=== PATIENT | female | born 1970 | race Caucasian/White ===

== ENCOUNTER 2019-07-01 11:04 | Emergency (ER) | payer BC ==
[2019-07-01] MEDS ORDERED: ONDANSETRON 4 MG/2 ML VIAL ONE (12:21)
[2019-07-01] MEDS ORDERED: NA CHLORIDE 0.9% 1,000 ML ONE (12:21)
[2019-07-01 12:44] LABS: Absolute Lymphocytes (CBC) 3.1 K/uL (0.7-4.9); Basophils % 1.1 % (0-1.3); MPV 8.8 fL (7.6-11.3); RBC Red Blood Cell Count 4.47 M/uL (3.86-4.86)
[2019-07-01 13:05] LABS: ALT/SGPT 49 U/L (12-78); AST/SGOT 28 U/L (15-37); Alkaline Phosphatase 111 U/L (45-117); BUN Blood Urea Nitrogen 16 mg/dL (7-18); Bicarbonate 28 mmol/L (21-32); Bilirubin Direct < 0.1 mg/dL (0-0.2); Bilirubin Total 0.3 mg/dL (0.2-1.0); Glucose Level 86 mg/dL (74-106); Lipase 70 U/L (73-393); Potassium 3.9 mmol/L (3.5-5.1); Protein, Total 8.3 g/dL (6.4-8.2); Sodium Level 138 mmol/L (136-145)
[2019-07-01] MEDS ORDERED: MEPERIDINE HCL 25 MG/0.5 ML ONE (13:30)
--- NOTE | 2019-07-01 14:04 | RAD REPORT ---
EXAM DESCRIPTION: CT - Abdomen Pelvis W Contrast - 07/01/2019 1:51 pm CLINICAL HISTORY: Abdominal pain COMPARISON: none. TECHNIQUE: Computed axial tomography of the abdomen pelvis was obtained. 100 cc Isovue-300 was admin istered intravenously. Oral contrast was not requested which limits evaluation of bowel. All CT scans are performed using dose optimization technique as appropriate and may include automated exposure control or mA/KV adjustment according to patient size. FINDINGS: The liver, spleen, pancreas, adrenal and kidneys appear unremarkable. Sigmoidectomy. No evidence of diverticulitis. The bowel caliber and wall thickness is normal. A moder ate amount stool within the colon Neurostimulator device in place Hysterectomy. Tiny umbilical hernia IMPRESSION: Moderate amount stool within the colon Sigmoidectomy
--- NOTE | 2019-07-01 15:05 | ER ---
Nurse's Notes [facility] Name: Deb Mann Age: 48 yrs Sex: Female : 1970 Arrival Date: 07/01/2019 Time: 11:07 Bed 18 Private MD: Diagnosis: Constipation, unspecified Presentation: 06/30 11:28 Chief complaint: Patient states: hx of Crohns and colon resection and hx of colitis and iw obstruction, has abd distention X 2 weeks, no vomiting, decreased BM, and abd pain, has adhesion. Coronavirus screen: Proceed with normal triage. Patient denies a cough. Patient denies shortness of breath or difficulty breathing. Patient denies measured and/or subjective temperature greater than 100.4F prior to today's visit. Patient denies travel on a cruise ship or to a country the [facility] currently lists as an affected area. Patient denies contact with known and/or suspected case of COVID-19. Ebola Screen: Patient negative for fever greater than or equal to 101.5 degrees Fahrenheit, and additional compatible Ebola Virus Disease symptoms Patient denies exposure to infectious person. Patient denies travel to an Ebola-affected area in the 21 days before illness onset. No symptoms or risks identified at this time. Initial Sepsis Screen: Does the patient meet any 2 criteria? No. Patient's initial sepsis screen is negative. Does the patient have a suspected source of infection? No. Patient's initial sepsis screen is negative. Risk Assessment: Do you want to hurt yourself or someone else? Patient reports no desire to harm self or others. Onset of symptoms was June 17, 2019. 11:28 Method Of Arrival: Ambulatory iw 11:28 Acuity: VANNESA 3 iw Triage Assessment: 12:00 General: Appears in no apparent distress. comfortable, Behavior is cooperative, bp appropriate for age, anxious. Pain: Complains of pain in abdomen. EENT: No deficits noted. Neuro: No deficits noted. Cardiovascular: No deficits noted. Respiratory: No deficits noted. GI: Abdomen is distended, Bowel sounds present X 4 quads. : No signs and/or symptoms were reported regarding the genitourinary system. Derm: No deficits noted. Musculoskeletal: No deficits noted. 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 - Social history:: Smoking status: Smoking status: Patient reports the use of cigarette tobacco products, smokes one-half pack cigarettes per day. - Family history:: not pertinent. - Hospitalizations: : No recent hospitalization is reported. Screenin:00 Abuse screen: Denies threats or abuse. Denies injuries from another. Nutritional bp screening: No deficits noted. Tuberculosis screening: No symptoms or risk factors identified. Fall Risk None identified. Assessment: 12:00 General: SEE TRIAGE NOTE. GI: Guarding noted X 4 quads. bp 12:49 Reassessment: PO CONTRAST COMPLETE, CT NOTIFIED. bp 14:00 Reassessment: PT RETURNED FROM CT. ACUTE S/S IMPROVED. bp 15:37 Reassessment: PT D/C HOME AMBULATORY, DX WITH CONSTIPATION. bp Vital Signs: 11:28 BP 144 / 101; Pulse 108; Resp 18; Temp 98.2; Pulse Ox 98% on R/A; Weight 61.23 kg; iw Height 5 ft. 5 in. (165.10 cm); Pain 6/10; 12:47 BP 172 / 112; Pulse 80; Resp 16; Pulse Ox 100% ; bp 14:00 BP 123 / 73; Pulse 82; Resp 16; Pulse Ox 100% ; bp 15:37 BP 139 / 71; Pulse 82; Resp 17; Temp 98.5; Pulse Ox 98% ; bp 11:28 Body Mass Index 22.46 (61.23 kg, 165.10 cm) iw ED Course: 11:07 Patient arrived in ED. ag5 11:30 Triage completed. iw 11:32 Arm band placed on. iw 12:00 Bryan Dorsey PA is PHCP. jr8 12:00 Nico Boogie MD is Attending Physician. jr8 12:00 Patient has correct armband on for positive identification. Bed in low position. Call bp light in reach. Side rails up X2. 12:04 Mateo Kent, RN is Primary Nurse. bp 12:30 Accessed Port-a-Cath. using accessed w/ #19 Mitchell needle, ,sterile technique, per hospital protocol. Clean \T\ dry. Dressing intact. Good blood return. Flushes easily. 13:50 CT Abd/Pelvis - PO and IV Contrast In Process Unspecified. EDMS 15:37 No provider procedures requiring assistance completed. IV discontinued, intact, bp bleeding controlled, No redness/swelling at site. Pressure dressing applied. Administered Medications: 12:30 Drug: NS 0.9% 1000 ml Route: IV; Rate: 1000 ml; Site: Port-a-cath; bp 15:39 Follow up: IV Status: Completed infusion; IV Intake: 1000ml bp 12:30 Drug: Zofran (Ondansetron) 4 mg Route: IVP; Site: Port-a-cath; bp 13:21 Follow up: Response: Nausea is decreased bp 13:25 Drug: Demerol 25 mg Route: IVP; Site: Port-a-cath; bp 14:20 Follow up: Response: Pain is decreased bp Intake: 15:39 IV: 1000ml; Total: 1000ml. bp Outcome: 15:05 Discharge ordered by . rn 15:37 Discharged to home ambulatory. bp 15:37 Condition: stable 15:37 Discharge instructions given to patient, Instructed on discharge instructions, follow up and referral plans. Demonstrated understanding of instructions, follow-up care. 15:43 Patient left the ED. bp Signatures: Dispatcher [employer] Nickie Mccord RN Nico Rich MD MD rn Roszak, Josh, PA PA jr8 Mateo Kent RN RN bp Gaskin, Ajare ag5
--- NOTE | 2019-07-01 15:05 | EDPHYS ---
Physician Documentation [facility] Name: Deb Mann Age: 48 yrs Sex: Female : 1970 Arrival Date: 07/01/2019 Time: 11:07 Bed 18 Private MD: ED Physician Nioc Boogie HPI: 06/30 12:28 This 48 yrs old Female presents to ER via Ambulatory with complaints of rn Abdominal Problem. 12:28 The patient presents with abdominal pain abdominal distention. Onset: The rn symptoms/episode began/occurred 3 day(s) ago. The symptoms do not radiate. Associated signs and symptoms: Pertinent positives: constipation, Pertinent negatives: blood in stools, fever, vomiting. The symptoms are described as achy, crampy. Modifying factors: The symptoms are alleviated by nothing, the symptoms are aggravated by touching the area. Severity of pain: At its worst the pain was mild in the emergency department the pain is unchanged. The patient has experienced a previous episode. The patient has not recently seen a physician. Reports abd distension for last few days, no fever/vomiting, + constipation but states takes benadryl to sleep and can sometimes go a week without bowel movement. Reports has Crohn's, and obstruction in past, but hasn't had any problems for 5-6 years. . 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 - Social history:: Smoking status: Smoking status: Patient reports the use of cigarette tobacco products, smokes one-half pack cigarettes per day. - Family history:: not pertinent. - Hospitalizations: : No recent hospitalization is reported. ROS: 12:28 Constitutional: Negative for fever, chills, and weight loss, Eyes: Negative for injury, rn pain, redness, and discharge, Cardiovascular: Negative for chest pain, palpitations, and edema, Respiratory: Negative for shortness of breath, cough, wheezing, and pleuritic chest pain, Abdomen/GI: + abd pain and distension MS/Extremity: Negative for injury and deformity, Skin: Negative for injury, rash, and discoloration, Neuro: Negative for headache, weakness, numbness, tingling, and seizure. Exam: 12:28 Constitutional: This is a well developed, well nourished patient who is awake, alert, rn and in no acute distress. Head/Face: Normocephalic, atraumatic. Cardiovascular: tachycardic, regular Respiratory: No increased work of breathing, no retractions or nasal flaring. Abdomen/GI: slightly firm in all quadrants, + small bulge possible ventral hernia, no skin changes Skin: Warm, dry MS/ Extremity: Pulses equal, no cyanosis. Neuro: Awake and alert, GCS 15 Vital Signs: 11:28 BP 144 / 101; Pulse 108; Resp 18; Temp 98.2; Pulse Ox 98% on R/A; Weight 61.23 kg; iw Height 5 ft. 5 in. (165.10 cm); Pain 6/10; 12:47 BP 172 / 112; Pulse 80; Resp 16; Pulse Ox 100% ; bp 14:00 BP 123 / 73; Pulse 82; Resp 16; Pulse Ox 100% ; bp 15:37 BP 139 / 71; Pulse 82; Resp 17; Temp 98.5; Pulse Ox 98% ; bp 11:28 Body Mass Index 22.46 (61.23 kg, 165.10 cm) iw MDM: 12:08 Patient medically screened. rn 15:01 Differential diagnosis: bowel obstruction, diverticulitis, non-specific abd pain. rn Differential diagnosis: crohns flare. Data reviewed: vital signs, nurses notes. Counseling: I had a detailed discussion with the patient and/or guardian regarding: the historical points, exam findings, and any diagnostic results supporting the discharge/admit diagnosis, lab results, radiology results, the need for outpatient follow up, to return to the emergency department if symptoms worsen or persist or if there are any questions or concerns that arise at home. Special discussion: I discussed with the patient/guardian in detail that at this point there is no indication for admission to the hospital. It is understood, however, that if the symptoms persist or worsen the patient needs to return immediately for re-evaluation. Based on the history and exam findings, there is no indication for further emergent testing or inpatient evaluation. I discussed with the patient/guardian the need to see the airplane fueler for further evaluation of the symptoms. I discussed with the patient/guardian the need to see the primary care provider for further evaluation of the symptoms. ED course: CT shows constipation, no bowel obstruction, no infection or signs of crohn's disease. 15:05 ED course: Pt directed to stay hydrated and take magnesium citrate OTC, has done so rn before for constipation, and has helped. Is happy that she doesn't need surgery or procedure, will dc home.. 06/30 12:00 Order name: Basic Metabolic Panel; Complete Time: : 8 06/30 12:00 Order name: CBC with Diff; Complete Time: 8 06/30 12:00 Order name: Creatinine for Radiology; Complete Time: 8 06/30 12:00 Order name: Hepatic Function; Complete Time: : 8 06/30 12:00 Order name: Lipase; Complete Time: : 8 06/30 12:05 Order name: CT Abd/Pelvis - PO and IV Contrast; Complete Time: 14:13 rn 06/30 12:00 Order name: IV Saline Lock; Complete Time: 12:51 jr8 06/30 12:00 Order name: Labs collected and sent; Complete Time: 12: jr8 Administered Medications: 12:30 Drug: NS 0.9% 1000 ml Route: IV; Rate: 1000 ml; Site: Port-a-cath; bp 15:39 Follow up: IV Status: Completed infusion; IV Intake: 1000ml bp 12:30 Drug: Zofran (Ondansetron) 4 mg Route: IVP; Site: Port-a-cath; bp 13:21 Follow up: Response: Nausea is decreased bp 13:25 Drug: Demerol 25 mg Route: IVP; Site: Port-a-cath; bp 14:20 Follow up: Response: Pain is decreased bp Disposition: 07/01/19 15:05 Discharged to Home. Impression: Constipation, unspecified. - Condition is Stable. - Discharge Instructions: Constipation, Adult. - Medication Reconciliation Form, Thank You Letter, Antibiotic Education, Prescription Opioid Use form. - Follow up: Private Physician; When: As needed; Reason: Recheck today's complaints, Re-evaluation by your physician. - Problem is new. - Symptoms have improved. Signatures: Dispatcher [employer] Nickie Mccord RN RN Nico Camejo MD MD rn Roszak, Josh, PA PA jr8 Mateo Kent RN RN bp Corrections: (The following items were deleted from the chart) 15:43 15:05 07/01/2019 15:05 Discharged to Home. Impression: Constipation, unspecified. bp Condition is Stable. Forms are Medication Reconciliation Form, Thank You Letter, Antibiotic Education, Prescription Opioid Use. Follow up: Private Physician; When: As needed; Reason: Recheck today's complaints, Re-evaluation by your physician. Problem is new. Symptoms have improved. rn
[2019-07-01] MEDS ORDERED: HEPARIN 500 UNIT/5 ML SYR IV ONE (15:38)
[2019-07-01 16:15] VITALS: BP 139/71; TEMP 98.5; O2SAT 98
== END 2019-07-01 15:43 | disposition home or self-care (01) ==
LOC: ER 11:04
DX: K59.00 Constipation, unspecified (principal); F17.210 Nicotine dependence, cigarettes, uncomplicated; Z88.8 Allergy status to other drugs, medicaments and biological substances
CPT/HCPCS: 96361; 85025; 80048; 36415; 80076; 83690; 74177; 96375; 96374; 99284; Q9967; J2175; J1642; J7030; J2405

== ENCOUNTER 2022-10-21 09:00 | Emergency (ER) | payer BC ==
[2022-10-21] MEDS ORDERED: DIAZEPAM 10 MG/2 ML INJ SYRINGE ONE (09:36)
[2022-10-21] MEDS ORDERED: HALOPERIDOL LACT 5 MG/ML INJ ONE ×2 (09:37→16:57)
[2022-10-21] MEDS ORDERED: NA CHLORIDE 0.9% 50 ML ONE ×2 (09:37→16:57)
[2022-10-21] MEDS ORDERED: NA CHLORIDE 0.9% 1,000 ML ONE ×3 (09:37→17:25)
[2022-10-21] MEDS ORDERED: FAMOTIDINE 20 MG/2 ML VIAL IV ONE (09:37)
[2022-10-21 09:52] LABS: Absolute Lymphocytes (CBC) 1.1 K/uL (0.7-4.9); Hematocrit 44.5 % (36.0-45.0); Lymphocytes % 4.8 % (15.3-44.8); MCV 89.1 fL (80-100); MPV 8.3 fL (7.6-11.3); Platelets 503 thou/uL (152-406); RBC Red Blood Cell Count 4.99 M/uL (3.86-4.86)
[2022-10-21 10:11] LABS: ALT/SGPT 77 U/L (13-56); AST/SGOT 48 U/L (15-37); Albumin 4.3 g/dL (3.4-5.0); Alkaline Phosphatase 124 U/L (45-117); BUN Blood Urea Nitrogen 19 mg/dL (7-18); Bicarbonate 25 mEq/L (21-32); Bilirubin Total 0.5 mg/dL (0.2-1.0); Glomerular Filtration Rate 45 ml/min (=/>90); Glucose Level 191 mg/dL (74-106); Lipase 16 U/L (13-75); Sodium Level 138 mEq/L (136-145)
[2022-10-21] MEDS ORDERED: NA CHLORIDE 0.9% 100 ML ONE (10:47)
[2022-10-21] MEDS ORDERED: PIPERACIL/TAZO 3.375 GM VIAL IV ONE (10:47)
[2022-10-21 11:31] LABS: Blood Morphology Comment NOT SEEN (NOT SEEN); Platelet Estimate INCR; White Blood Cell Scan OK (OK)
--- NOTE | 2022-10-21 11:51 | RAD REPORT ---
EXAM DESCRIPTION: CT - Abdomen Pelvis W Contrast - 10/21/2022 11:15 am CLINICAL HISTORY: Abd pain;Abdominal distention COMPARISON: Abdomen Pelvis W Contrast dated 07/01/2019 TECHNIQUE: Thin cut axial CT imaging of the abdomen and pelvis was performed following intravenous a dministration of 95 mL Isovue 300. Multiplanar reformats were generated and reviewed. All CT scans are performed using dose optimization technique as appropriate and may include automated exposure control or mA/KV adjustment according to patient size. FINDINGS: No suspicious findings in the lung bases. The liver, spleen, and pancreas show no suspicious findings. Gallbladder and biliary tree are also wi thout suspicious finding. Symmetric renal function is seen with no hydronephrosis or suspicious renal mass. Long segment of bowel wall thickening and mucosal hyperenhancement involving the distal ileum. Mild f luid distention and mild small bowel dilation of segments of mid to distal bowel loops, proximal to t hat segment, as well as involving the proximal aspect of that segment. Smooth tapering of inflamed tierra wel towards the terminal ileum, with the inflammatory appearance not extending to the ileocecal junct ion. No free air, free fluid or inflammatory stranding. Sequelae of partial colectomy with a distal c olonic anastomosis. No hernia, mass or bulky lymphadenopathy. The urinary bladder is without signific ant finding. No suspicious bony findings. IMPRESSION: Long segment of inflammatory changes with bowel wall thickening and mucosal hyperenhance ment involving the distal ileum. Small tapering towards the terminal ileum, with the inflammatory richard earance not involving the ileocecal junction. Two mild ileus of the distal small bowel
[2022-10-21 12:22] LABS: Specific Gravity > 1.030 (1.005-1.030); Urine Bacteria <20 /HPF (<20); Urine Bilirubin NEGATIVE (Negative); Urine Blood 1+ (Negative); Urine Clarity Clear (Clear); Urine Color Light-Yellow (Yellow); Urine Glucose TRACE (Negative); Urine Mucus Slight /HPF (None Seen); Urine Protein NEGATIVE (Negative); Urine Urobilinogen Normal (Normal); Urine pH 6.5 (5.0-7.0)
[2022-10-21 13:18] LABS: Troponin High Sensitivity < 3.0 pg/mL (<58.9)
--- NOTE | 2022-10-21 17:30 | EDPHYS ---
Physician Documentation [facility] Name: Deb Mann Age: 52 yrs Sex: Female : 1970 Arrival Date: 10/21/2022 Time: 09:00 Bed 13 Private MD: YONATAN Physician Anil Church HPI: 10/21 09:16 This 52 yrs old Female presents to ER via Wheelchair with complaints of Abdominal Pain, snw Nausea/Vomiting/Diarrhea. 09:16 The patient presents with abdominal pain abdominal distention. Onset: The snw symptoms/episode began/occurred suddenly, last night. The symptoms do not radiate. Associated signs and symptoms: Pertinent positives: nausea, vomiting. The symptoms are described as stabbing, steady. Severity of pain: At its worst the pain was moderate severe. pt has had multiple bowel resections. Historical: - Allergies: 09:13 Remicade; hb - PMHx: 09:13 bowel obstruction; Crohn's; UTI; hb - PSHx: 09:13 Colon Resection; hb ROS: 09:16 Constitutional: Negative for fever, chills, and weight loss, Eyes: Negative for injury, snw pain, redness, and discharge, ENT: Negative for injury, pain, and discharge, Neck: Negative for injury, pain, and swelling, Cardiovascular: Negative for chest pain, palpitations, and edema, Respiratory: Negative for shortness of breath, cough, wheezing, and pleuritic chest pain, Back: Negative for injury and pain, : Negative for injury, bleeding, discharge, and swelling, MS/Extremity: Negative for injury and deformity, Skin: Negative for injury, rash, and discoloration, Neuro: Negative for headache, weakness, numbness, tingling, and seizure, Psych: Negative for depression, anxiety, suicide ideation, homicidal ideation, and hallucinations. 09:16 Abdomen/GI: Positive for abdominal pain, nausea and vomiting, abdominal cramps. Exam: 09:14 Eyes: Pupils equal round and reactive to light, extra-ocular motions intact. Lids and snw lashes normal. Conjunctiva and sclera are non-icteric and not injected. Cornea within normal limits. Periorbital areas with no swelling, redness, or edema. ENT: Nares patent. No nasal discharge, no septal abnormalities noted. Tympanic membranes are normal and external auditory canals are clear. Oropharynx with no redness, swelling, or masses, exudates, or evidence of obstruction, uvula midline. Mucous membranes moist. Neck: Trachea midline, no thyromegaly or masses palpated, and no cervical lymphadenopathy. Supple, full range of motion without nuchal rigidity, or vertebral point tenderness. No Meningismus. Chest/axilla: Normal chest wall appearance and motion. Nontender with no deformity. No lesions are appreciated. 09:14 Back: No spinal tenderness. No costovertebral tenderness. Full range of motion. MS/ Extremity: Pulses equal, no cyanosis. Neurovascular intact. Full, normal range of motion. Neuro: Awake and alert, GCS 15, oriented to person, place, time, and situation. Cranial nerves II-XII grossly intact. Motor strength 5/5 in all extremities. Sensory grossly intact. Cerebellar exam normal. Normal gait. 09:14 Constitutional: The patient appears alert, awake, anxious, restless, uncomfortable. 09:14 Head/face: Exam is negative for 09:14 Cardiovascular: Rate: tachycardic, Rhythm: regular, Pulses: no pulse deficits are appreciated. 09:14 Respiratory: the patient does not display signs of respiratory distress, Respirations: shallow respirations, tachypnea. 09:14 Abdomen/GI: Inspection: distension, Bowel sounds: diminished, Palpation: moderate abdominal tenderness, in all quadrants. 09:14 Skin: Appearance: Color: dusky, Moisture: dry. 09:14 Psych: Behavior/mood is pleasant, anxious, Affect is animated. Vital Signs: 09:11 BP 171 / 125; Pulse 123; Resp 20; Temp 98.7(O); Pulse Ox 100% on R/A; Weight 61.23 kg; hb Height 5 ft. 5 in. ; Pain 8/10; 10:52 BP 156 / 92; Pulse 111; Resp 20 S; Pulse Ox 98% on R/A; kc6 11:51 Pulse 109; Resp 20 S; Pulse Ox 99% on R/A; kc6 12:35 BP 149 / 92; Pulse 108; Resp 16 S; Temp 97.8(O); Pulse Ox 100% on R/A; kc6 13:55 BP 147 / 99; Pulse 104; Resp 20 S; Pulse Ox 99% on R/A; kc6 14:36 BP 127 / 83; Pulse 104; Resp 17 S; Temp 98.5(O); Pulse Ox 100% on R/A; kc6 15:32 BP 129 / 84; Pulse 103; Resp 15 S; Pulse Ox 100% on R/A; kc6 17:01 BP 106 / 68; Pulse 100; Resp 12 S; Pulse Ox 98% on R/A; Pain 7/10; kc6 17:54 BP 102 / 65; Pulse 101; Resp 14 S; Pulse Ox 99% on R/A; kc6 18:36 BP 127 / 72; Pulse 99; Resp 14 S; Pulse Ox 100% on R/A; kc6 19:41 BP 133 / 83; Pulse 98; Resp 19; Pulse Ox 100% on R/A; ll3 09:11 Body Mass Index 22.46 (61.23 kg, 165.1 cm) hb 09:11 Pain Scale: Adult hb 17:01 Pain Scale: Adult kc6 MDM: 09:08 Patient medically screened. snw 09:16 Differential diagnosis: bowel obstruction, cholecystitis, Cholelithiasis. Data snw reviewed: vital signs, nurses notes. I considered the following discharge prescriptions or medication management in the emergency department Medications were administered in the Emergency Department. See MAR. 12:41 Management of patient was discussed with the following: Hospitalist: Dr. Connelly. snw Counseling: I had a detailed discussion with the patient and/or guardian regarding the historical points, exam findings, and any diagnostic results supporting the discharge/admit diagnosis, the presence of at least one elevated blood pressure reading (>120/80) during this emergency department visit, lab results, radiology results, the need for further work-up and treatment in the hospital. Response to treatment: the patient's symptoms have markedly improved after treatment. 12:47 ED course: IV access difficult, pt has port from 10 yrs ago, difficultly obtaining labs snw delayed fluid a bit but pt is more hemodynamically stable at this time, CT shows colitis and ileus, pt to be admitted to inpatient per Dr. Connelly. 13:06 ED course: Dr. Brizuela, Surgery senior control systems engineer, states pt needs to be transferred for GI, pt may snw need colonoscopy, endoscopy, stricture stent or stricturoplasty. Unknown if colitis infectious, inflammatory, or ischemic. 17:00 Management of patient was discussed with the following: Dr. Lockwood, Colorectal surgery, [facility] kindly accepts pt in transfer.. 17:27 ED course: Dr. Correa would like a repeat lactate, ordered now. He accepts pt in snw transfer upon result. 10/21 09:13 Order name: CBC with Diff; Complete Time: 11:33 snw 10/21 09:13 Order name: CMP; Complete Time: 13:22 snw 10/21 09:13 Order name: Lipase; Complete Time: 13:22 snw 10/21 09:13 Order name: Urinalysis w/ reflexes; Complete Time: 12:31 snw 10/21 09:54 Order name: Blood Culture Adult (2) snw 10/21 09:56 Order name: Lactate w/ 2H reflex if indic.; Complete Time: 11:33 snw 10/21 11:32 Order name: CBC Smear Scan; Complete Time: 11:33 EDMS 10/21 12:26 Order name: Troponin High Sensitivity; Complete Time: 13:22 EDMS 10/21 14:22 Order name: CRP; Complete Time: 15:05 snw 10/21 14:22 Order name: Procalcitonin; Complete Time: 15:50 snw 10/21 14:53 Order name: Lactate Sepsis 2 HR Follow-up; Complete Time: 14:54 EDMS 10/21 17:25 Order name: Lactate w/ 2H reflex if indic.; Complete Time: 18:46 snw 10/21 09:13 Order name: CT Abd/Pelvis - IV Contrast Only; Complete Time: 11:57 snw 10/21 11:44 Order name: EKG; Complete Time: 11:44 snw 10/21 09:13 Order name: IV Saline Lock; Complete Time: 10:46 snw 10/21 09:13 Order name: Labs collected and sent; Complete Time: 09:53 snw 10/21 11:44 Order name: EKG - Nurse/Tech; Complete Time: 11:58 snw Administered Medications: 09:53 Drug: Famotidine IVP 20 mg Route: IVP; Site: right antecubital; kc6 11:58 Follow up: Response: No adverse reaction kc6 10:57 Drug: Haloperidol IVP 2.5 mg/50 mL 2.5 mg Route: IVP; Site: left forearm; kc6 11:58 Follow up: Response: No adverse reaction; Nausea is decreased; Vomiting decreased kc6 10:57 Drug: NS 0.9% IV 1000 ml Route: IV; Rate: 1 bolus; Site: left forearm; kc6 12:43 Follow up: Response: No adverse reaction; IV Status: Completed infusion; IV Intake: kc6 1000ml 10:57 Drug: Diazepam IVP 5 mg Route: IVP; Site: left forearm; kc6 11:58 Follow up: Response: No adverse reaction; Anxiety unchanged; RASS: Alert and Calm (0) kc6 10:57 Drug: NS 0.9% IV 1000 ml Route: IV; Rate: 1 bolus; Site: left forearm; kc6 13:00 Follow up: Response: No adverse reaction; IV Status: Completed infusion; IV Intake: kc6 1000ml 12:32 Drug: Piperacillin-Tazobactam IVPB 3.375 grams Route: IVPB; Infused Over: 60 mins; kc6 Site: left forearm; 13:30 Follow up: Response: No adverse reaction; IV Status: Completed infusion; IV Intake: kc6 100ml 16:58 Drug: Haloperidol IVP 2.5 mg/50 mL 2.5 mg Route: IVP; Site: left forearm; kc6 17:18 Follow up: Response: No adverse reaction; Pain is decreased; Nausea is decreased; RASS: kc6 Alert and Calm (0) 17:18 Drug: NS 0.9% IV 1000 ml Route: IV; Rate: 1 bolus; Site: left forearm; kc6 20:49 Follow up: Response: No adverse reaction; IV Status: Completed infusion; IV Intake: ll3 1000ml Disposition Summary: 10/21/22 17:30 Transfer Ordered Transfer Location: [facility] snw Reason: Specialty snw Condition: Stable snw Problem: new snw Symptoms: have improved snw Accepting Physician: Dr. Correa(10/21/22 20:49) ll3 Diagnosis - Left sided colitis - infectious, inflammatory snw Forms: - Medication Reconciliation Form snw - SBAR form snw Signatures: Dispatcher [employer] EDFadia Morales FNP-C ORDER MANAGEMENT SPECIALIST-Csnw Ro Rahman RN RN hb Loubet, Lynsea, RN RN ll3 Radha Dale RN RN kc6 Corrections: (The following items were deleted from the chart) 12: 11:44 Troponin High Sensitivity+C.MURPHYZ ordered. EDMS EDMS 20:49 17:30 Dr. Madeline hornw ll3
--- NOTE | 2022-10-21 17:30 | ER ---
Nurse's Notes [facility] Name: Deb Mann Age: 52 yrs Sex: Female : 1970 Arrival Date: 10/21/2022 Time: 09:00 Bed 13 Private MD: Diagnosis: Left sided colitis-infectious, inflammatory Presentation: 10/21 09:11 Chief complaint: N/V, headache, and abdominal pain since last night, constipation x 3-4 hb days. Coronavirus screen: At this time, the client does not indicate any symptoms associated with coronavirus-19. Ebola Screen: No symptoms or risks identified at this time. Initial Sepsis Screen: Does the patient meet any 2 criteria? RR > 20 per min. HR > 90 bpm. Yes Does the patient have a suspected source of infection? No. Patient's initial sepsis screen is negative. Risk Assessment: Do you want to hurt yourself or someone else? Patient reports no desire to harm self or others. Onset of symptoms was October 20, 2022. 09:11 Method Of Arrival: Wheelchair hb 09:11 Acuity: VANNESA 2 hb Historical: - Allergies: 09:13 Remicade; hb - PMHx: 09:13 bowel obstruction; Crohn's; UTI; hb - PSHx: 09:13 Colon Resection; hb Screenin:15 [facility] ED Fall Risk Assessment (Adult) History of falling in the last 3 months, kc6 including since admission No falls in past 3 months (0 pts) Confusion or Disorientation No (0 pts) Intoxicated or Sedated No (0 pts) Impaired Gait No (0 pts) Mobility Assist Device Used No (0 pt) Altered Elimination No (0 pt) Score/Fall Risk Level 0 - 2 = Low Risk. Abuse screen: Denies threats or abuse. Denies injuries from another. Nutritional screening: No deficits noted. Tuberculosis screening: No symptoms or risk factors identified. Assessment: 09:15 General: Appears in no apparent distress. uncomfortable, ill, Behavior is cooperative, kc6 appropriate for age, anxious. Pain: Complains of pain in abdomen. Neuro: Level of Consciousness is awake, alert, obeys commands, Oriented to person, place, time, situation, Appropriate for age. Cardiovascular: Heart tones S1 S2 present Capillary refill < 3 seconds Rhythm is sinus tachycardia. Respiratory: Airway is patent Trachea midline Respiratory effort is even, unlabored, Respiratory pattern is regular, symmetrical. GI: Abdomen is round distended, Last BM was October 04, 2022. Bowel sounds present X 4 quads. Abd is rigid X 4 quads. Reports constipation, nausea, vomiting, Patient currently denies diarrhea. : No signs and/or symptoms were reported regarding the genitourinary system. EENT: No signs and/or symptoms were reported regarding the EENT system. Derm: No signs and/or symptoms reported regarding the dermatologic system. Skin is intact, is healthy with good turgor, Skin is pale. Musculoskeletal: No signs and/or symptoms reported regarding the musculoskeletal system. Circulation, motion, and sensation intact. Capillary refill < 3 seconds, Range of motion: intact in all extremities. 10:15 Reassessment: Patient appears in no apparent distress at this time. No changes from kc6 previously documented assessment. Patient and/or family updated on plan of care and expected duration. Pain level reassessed. Patient is alert, oriented x 3, equal unlabored respirations, skin warm/dry/pink. 10:45 Reassessment: spoke with Cate from phlebotmy. stated she has to go to ICU and then [facility] will come here for assistance with blood cultures. 11:15 Reassessment: Patient appears in no apparent distress at this time. No changes from kc6 previously documented assessment. Patient and/or family updated on plan of care and expected duration. Pain level reassessed. Patient is alert, oriented x 3, equal unlabored respirations, skin warm/dry/pink. 12:35 Reassessment: Patient appears in no apparent distress at this time. No changes from kc6 previously documented assessment. Patient and/or family updated on plan of care and expected duration. Pain level reassessed. Patient is alert, oriented x 3, equal unlabored respirations, skin warm/dry/pink. 13:55 Reassessment: Patient appears in no apparent distress at this time. No changes from kc6 previously documented assessment. Patient and/or family updated on plan of care and expected duration. Pain level reassessed. Patient is alert, oriented x 3, equal unlabored respirations, skin warm/dry/pink. 14:36 Reassessment: Patient appears in no apparent distress at this time. No changes from kc6 previously documented assessment. Patient and/or family updated on plan of care and expected duration. Pain level reassessed. Patient is alert, oriented x 3, equal unlabored respirations, skin warm/dry/pink. 15:32 Reassessment: Patient appears in no apparent distress at this time. No changes from [facility] previously documented assessment. Patient and/or family updated on plan of care and expected duration. Pain level reassessed. Patient is alert, oriented x 3, equal unlabored respirations, skin warm/dry/pink. 16:32 Reassessment: Patient appears in no apparent distress at this time. No changes from [facility] previously documented assessment. Patient and/or family updated on plan of care and expected duration. Pain level reassessed. Patient is alert, oriented x 3, equal unlabored respirations, skin warm/dry/pink. 17:54 Reassessment: Patient appears in no apparent distress at this time. No changes from [facility] previously documented assessment. Patient and/or family updated on plan of care and expected duration. Pain level reassessed. Patient is alert, oriented x 3, equal unlabored respirations, skin warm/dry/pink. 18:36 Reassessment: Patient appears in no apparent distress at this time. No changes from [facility] previously documented assessment. Patient and/or family updated on plan of care and expected duration. Pain level reassessed. Patient is alert, oriented x 3, equal unlabored respirations, skin warm/dry/pink. 18:59 Reassessment: attempted to call report to [facility]. no answer at this time. 6 Vital Signs: 09:11 BP 171 / 125; Pulse 123; Resp 20; Temp 98.7(O); Pulse Ox 100% on R/A; Weight 61.23 kg; hb Height 5 ft. 5 in. ; Pain 8/10; 10:52 BP 156 / 92; Pulse 111; Resp 20 S; Pulse Ox 98% on R/A; kc6 11:51 Pulse 109; Resp 20 S; Pulse Ox 99% on R/A; kc6 12:35 BP 149 / 92; Pulse 108; Resp 16 S; Temp 97.8(O); Pulse Ox 100% on R/A; kc6 13:55 BP 147 / 99; Pulse 104; Resp 20 S; Pulse Ox 99% on R/A; kc6 14:36 BP 127 / 83; Pulse 104; Resp 17 S; Temp 98.5(O); Pulse Ox 100% on R/A; kc6 15:32 BP 129 / 84; Pulse 103; Resp 15 S; Pulse Ox 100% on R/A; kc6 17:01 BP 106 / 68; Pulse 100; Resp 12 S; Pulse Ox 98% on R/A; Pain 7/10; kc6 17:54 BP 102 / 65; Pulse 101; Resp 14 S; Pulse Ox 99% on R/A; kc6 18:36 BP 127 / 72; Pulse 99; Resp 14 S; Pulse Ox 100% on R/A; kc6 19:41 BP 133 / 83; Pulse 98; Resp 19; Pulse Ox 100% on R/A; ll3 09:11 Body Mass Index 22.46 (61.23 kg, 165.1 cm) hb 09:11 Pain Scale: Adult hb 17:01 Pain Scale: Adult [facility] ED Course: 09:03 Patient arrived in ED. ts1 09:05 Fad[facility] Goldstein FNP-C [facility]. snw 09:05 Anil Church MD is Attending Physician. snw 09:13 Triage completed. hb 09:14 Arm band placed on. hb 09:15 Patient has correct armband on for positive identification. Placed in gown. Bed in low kc6 position. Call light in reach. Side rails up X2. Adult w/ patient. 09:15 Missed attempt(s): 22 gauge in left antecubital area. Missed attempt(s): 22 gauge in kc6 left antecubital area. 09:22 Radha Dale RN is Primary Nurse. [facility] 10:43 Inserted saline lock: 22 gauge in left forearm, using aseptic technique. Blood ko1 collected. 11:10 Missed attempt(s): 20 gauge in left EJ. Missed attempt(s): 20 gauge in left EJ, by [facility] Fadia Goldstein NP. 11:16 CT Abd/Pelvis - IV Contrast Only In Process Unspecified. EDMS 12:10 Accessed Port-a-Cath. using accessed w/ # 20 Mitchell needle, ,sterile technique, per [facility] hospital protocol. Clean \T\ dry. Dressing intact. Good blood return. Flushes easily. by Ro Rahman RN. 16:[address] Jim the colorectal surgeon auto air conditioning apprentice for [facility] with Fadia Tyson eb for patient transfer consultation. 18:21 Lactate w/ 2H reflex if indic. Sent. hb 18:50 administrative approval given by Mine Kelley Rn/ patient has been accepted to [facility] Bed 1543/ Dr. Vidal has accepted the patient in transfer/ report to be called to [phone]. 20:47 No provider procedures requiring assistance completed. Patient transferred, IV remains ll3 in place. Administered Medications: 09:53 Drug: Famotidine IVP 20 mg Route: IVP; Site: right antecubital; kc6 11:58 Follow up: Response: No adverse reaction kc6 10:57 Drug: Haloperidol IVP 2.5 mg/50 mL 2.5 mg Route: IVP; Site: left forearm; kc6 11:58 Follow up: Response: No adverse reaction; Nausea is decreased; Vomiting decreased kc6 10:57 Drug: NS 0.9% IV 1000 ml Route: IV; Rate: 1 bolus; Site: left forearm; kc6 12:43 Follow up: Response: No adverse reaction; IV Status: Completed infusion; IV Intake: kc6 1000ml 10:57 Drug: Diazepam IVP 5 mg Route: IVP; Site: left forearm; kc6 11:58 Follow up: Response: No adverse reaction; Anxiety unchanged; RASS: Alert and Calm (0) kc6 10:57 Drug: NS 0.9% IV 1000 ml Route: IV; Rate: 1 bolus; Site: left forearm; kc6 13:00 Follow up: Response: No adverse reaction; IV Status: Completed infusion; IV Intake: kc6 1000ml 12:32 Drug: Piperacillin-Tazobactam IVPB 3.375 grams Route: IVPB; Infused Over: 60 mins; kc6 Site: left forearm; 13:30 Follow up: Response: No adverse reaction; IV Status: Completed infusion; IV Intake: kc6 100ml 16:58 Drug: Haloperidol IVP 2.5 mg/50 mL 2.5 mg Route: IVP; Site: left forearm; kc6 17:18 Follow up: Response: No adverse reaction; Pain is decreased; Nausea is decreased; RASS: kc6 Alert and Calm (0) 17:18 Drug: NS 0.9% IV 1000 ml Route: IV; Rate: 1 bolus; Site: left forearm; kc6 20:49 Follow up: Response: No adverse reaction; IV Status: Completed infusion; IV Intake: ll3 1000ml Medication: 20:49 VIS not applicable for this client. ll3 Intake: 12:43 IV: 1000ml; Total: 1000ml. kc6 13:00 IV: 1000ml; Total: 2000ml. kc6 13:30 IV: 100ml; Total: 2100ml. kc6 20:49 IV: 1000ml; Total: 3100ml. ll3 Outcome: 17:30 ER care complete, transfer ordered by . sndarby 20:47 Transferred by ground EMS to [facility], [facility], Transfer form completed. ll3 20:47 Condition: stable 20:47 Instructed on the need for transfer, Demonstrated understanding of instructions. 20:49 Patient left the ED. ll3 Signatures: Dispatcher [employer] EDMS Fadia Goldstein, [place] AIDE-C [employer] AIDE-Csnw Ro Rahman RN RN Tish Garcia [place] RN RN ll3 Radha Dale RN RN kc6 Danika Hernandez RN RN ko1 Katherin Sheth, PAS PAS ts1 Corrections: (The following items were deleted from the chart) 09:14 09:11 BP 171 / 125; Pulse 123bpm; Resp 20bpm; Pulse Ox 100% RA; Temp 98.7F Oral; Pain hb 8/10, Adult; hb
[2022-10-21 21:20] VITALS: TEMP 98.5
[2022-10-21 21:27] VITALS: O2SAT 100
[2022-10-21 21:29] VITALS: BP 133/83
--- NOTE | 2022-10-23 18:03 | EKG ---
Test Date: 2022-10-21 Test Time: 11:55:20 Pattern Carrier: SELINA MEASUREMENT RESULTS: Intervals: Rate: 108 MI: 160 QRSD: 84 QT: 350 QTc: 469 [place]: P: 70 MI: 160 QRS: 91 T: 66 INTERPRETIVE STATEMENTS: Sinus tachycardia Otherwise normal ECG No previous ECG available for comparison Electronically Signed On 10-23-22 17:58:26 CDT by Acosta Gonzales
== END 2022-10-21 20:49 | disposition short-term general hospital (02) ==
LOC: ER 09:00
DX: A09 Infectious gastroenteritis and colitis, unspecified (principal); Z88.8 Allergy status to other drugs, medicaments and biological substances
CPT/HCPCS: 93005; 87040 ×2; 85025; 81001; 36415; 83605 ×3; 84484; 83690; 80053; 84145; 86140; 74177; 99285; Q9967; J1630 ×2; J2543; J3360; J7030 ×3

== ENCOUNTER 2023-01-29 18:17 | Emergency (ER) | payer BC ==
--- OUTSIDE RECORDS SUMMARY | 2023-01-29 18:21 | XMS REPORT | Continuity of Care Document ---
:1970 Author Organization [facility] t Address [address] [facility] [address] [place] [id number] Care Team Providers Name Role Phone BREANNA ANN Attending Clinician Unavailable Hugo Hathaway MD Attending Clinician HUGO HATHAWAY Attending Clinician Unavailable Zechariah Fraser MD Attending Clinician Gerber Vidal MD Attending Clinician [phone] Breanna Ann MD Attending Clinician Maegan Raymond MD Attending Clinician MAEGAN RAYMOND Attending Clinician Unavailable BREANNA ANN Admitting Clinician Unavailable HUGO HATHAWAY Admitting Clinician Unavailable Payers Payer Name Policy Type Policy Number Effective Date Expiration Date Kemi anglin BCBS FED [id number] 2003 00:00:00 Problems Condition Condition Condition Status Onset Resolution Last Treating Co mments Source Name Details Category Date Date Treatment Clinician Date 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 00:[facility]: [facility] 00 Center Nausea & Nausea & Disease Active [facility] Allergies, Adverse Reactions, Alerts Allergy Allergy Status Severity Reaction(s) Onset Inactive Treating Comm ents Source Name Type Date Date Clinician Inflixim Drug Active Other (See Serum [facility] Allergy Comments) 10-21 sickness [facility] 00:[facility]: Medical 00 Center INFLIXIM Allergy Active High Other [facility]21 [facility] Social History Social Habit Start Date Stop Date Quantity Comments Source History [facility] Housing Places Medical Ce nter Lived Sexual orientation [facility] Alcohol intake 2022-12-28 2022-12-28 Ex-drinker [facility] 00:[facility]00 00:00:00 (finding) Medical Center History of Social 2022-12-28 2022-12-[address] [facility] function 00:00:00 00:00:00 Medical Center Exposure to 2022-12-17 2022-12-[address] [facility] SARS-CoV-2 (event) 00:00:00 12:15:00 Medica Center Tobacco use and 2022-12-25 2022-12-[address] [facility] exposure 00:00:00 00:00:00 non-user Medical Center Cigarettes smoked 2022-12-25 2022-12-[address] [facility] current (pack per 00:00:00 00:00:00 Medical Center day) - Reported Cigarette 2022-12-25 2022-12-[address] [facility] pack-years 00:00:00 00:00:00 Medical Center History [facility] 2022-10-22 2022-10-[address] [facility] Housing Unable to 00:00:00 00:00:00 Medical Center Pay History [facility] 2022-10-22 2022-10-[address] [facility] Housing Homeless 00:00:00 00:00:00 Medical Center Last Year History of tobacco 2002-08-03 2022-08-[address] [facility] use 00:00:00 00:00:00 [facility] Sex Assigned At 1970 [address] [facility] [address] [facility] kes 00:00:00 00:00:00 Medical Center Smoking Status Start Date Stop Date Source Ex-smoker 2022-12-25 00:00:00 2022-12-25 00:00:00 [place] [facility] Medications Ordered Filled Start Stop Current Ordering Indication Dosage Frequency Signature Comments Components Source Medication Medication Date Date Medication? Clinician (SIG) Name Name diphenhydrA 2022-03 Yes insomnia 50mg Take [address] [facility] 0-25 capsules [facility] (BENADRYL) 14:44: (50 mg Medic al 25 mg 50 total) by Center capsule mouth every night as needed for Sleep. buprenorphi 2022-03 Yes .5{film Q.40552545 Place 0.[address] [facility]-naloxone 0-25 } [id number] Film under [facility] (SUBOXONE) 14:44: 3D the tongue M edical 8-2 mg SL 50 3 (three) Cente r film times daily For pain control. diphenhydrA 2022-03 Yes insomnia 50mg Take [address] [facility]INE 0-25 capsules [facility] (BENADRYL) 14:44: (50 mg Medic al 25 mg 50 total) by Center capsule mouth every night as needed for Sleep. buprenorphi 2022-03 Yes .5{film Q.15471695 Place 0.[address] ne-naloxone 0-25 } [id number] Film under [facility] (SUBOXONE) 14:44: 3D the tongue M edical 8-2 mg SL 50 3 (three) Cente r film times daily For pain control. diphenhydrA 2022-03 Yes insomnia 50mg Take [address] [facility]INE 0-25 capsules [facility] (BENADRYL) 14:44: (50 mg Medic al 25 mg 50 total) by Center capsule mouth every night as needed for Sleep. buprenorphi 2022-03 Yes .5{film Q.[id number] Place 0.[address] ne-naloxone 0-25 } [id number] Film under [facility] (SUBOXONE) 14:44: 3D the tongue M edical 8-2 mg SL 50 3 (three) Cente r film times daily For pain control. buprenorphi 2022-03 Yes .5{film Q.[id number] Place 0.[address] ne-naloxone 0-23 } [id number] Film under [facility] (SUBOXONE) 09:25: 3D the tongue M edical 8-2 mg SL 07 3 (three) Cente r film times daily For pain control. diphenhydrA 2022-03 Yes insomnia 50mg Take [address] [facility]INE 0-23 capsules [facility] (BENADRYL) 09:20: (50 mg Medic al 25 mg 17 total) by Center capsule mouth every night as needed for Sleep. buprenorphi 0 2022- No 2mg Place [address] ne 8-20 08-20 tablet (2 [facility] (SUBUTEX) 2 13:22: 00:00 mg total) Medical mg SL 23 :00 under the Center tablet tongue every other day This medication has the potential to cause dental problems. After the medication has completely dissolved in your mouth, gently rinse your teeth and gums with water and then swallow, and also wait at least 1 ho. Max Daily Amount: 2 mg buprenorphi 2023-0 2023- No 2mg Place [address] [facility] 8-20 08-20 tablet (2 [facility] (SUBUTEX) 2 13:22: 00:00 mg total) Medical mg SL 23 :00 under the Center tablet tongue every other day This medication has the potential to cause dental problems. After the medication has completely dissolved in your mouth, gently rinse your teeth and gums with water and then swallow, and also wait at least 1 ho. Max Daily Amount: 2 mg buprenorphi 2023-0 2023- No 2mg Place [address] ne 8-20 08-20 tablet (2 [facility] (SUBUTEX) 2 13:22: 00:00 mg total) Medical mg SL 23 :00 under the Center tablet tongue every other day This medication has the potential to cause dental problems. After the medication has completely dissolved in your mouth, gently rinse your teeth and gums with water and then swallow, and also wait at least 1 ho. Max Daily Amount: 2 mg buprenorphi 2023-0 2023- No 2mg Place [address] ne 8-20 08-20 tablet (2 [facility] (SUBUTEX) 2 13:22: 00:00 mg total) Medical mg SL 23 :00 under the Center tablet tongue every other day This medication has the potential to cause dental problems. After the medication has completely dissolved in your mouth, gently rinse your teeth and gums with water and then swallow, and also wait at least 1 ho. Max Daily Amount: 2 mg Vital Signs Vital Name Observation Time Observation Value Comments Source HEIGHT 2022-12-27 12:30:00 165.1 cm WEIGHT 2022-12-27 12:30:00 64.365 kg HEIGHT 2022-12-25 07:00:00 165.1 cm WEIGHT 2022-12-25 07:00:00 63.504 kg HEIGHT 2022-12-27 12:30:00 165.1 cm WEIGHT 2022-12-27 12:30:00 64.365 kg HEIGHT 2022-12-25 07:00:00 165.1 cm WEIGHT 2022-12-25 07:00:00 63.504 kg HEIGHT 2022-12-27 12:30:00 165.1 cm WEIGHT 2022-12-27 12:30:00 64.365 kg HEIGHT 2022-12-25 07:00:00 165.1 cm WEIGHT 2022-12-25 07:00:00 63.504 kg WEIGHT 2022-10-21 22:03:00 65.137 kg HEIGHT 2022-10-21 22:03:00 165.1 cm WEIGHT 2022-10-21 22:03:00 65.137 kg HEIGHT 2022-10-21 22:03:00 165.1 cm WEIGHT 2022-10-21 22:03:00 65.137 kg HEIGHT 2022-10-21 22:03:00 165.1 cm Systolic blood 2022-12-27 14:30:00 118 mm[Hg] [facility] Diastolic blood 2022-12-27 14:30:00 68 mm[Hg] [facility] Heart rate 2022-12-27 14:30:00 76 /min [place] [facility] Respiratory rate 2022-12-27 14:30:00 16 /min [facility] Oxygen saturation in 2022-12-27 14:15:00 100 /min [facility] Arterial blood by Medical Ce nter Pulse oximetry Body temperature 2022-12-27 14:00:00 36.22 Jo [facility] Body height 2022-12-27 12:30:00 165.1 cm [place] [facility] Body weight 2022-12-27 12:30:00 64.365 kg [place] [facility] BMI 2022-12-27 12:30:00 23.61 kg/m2 [place] [facility] Body height 2022-12-25 07:00:00 165.1 cm [place] [facility] Body weight 2022-12-25 07:00:00 63.504 kg [place] [facility] BMI 2022-12-25 07:00:00 23.30 kg/m2 [place] [facility] Heart rate 2022-10-22 15:59:56 91 /min [place] [facility] Respiratory rate 2022-10-22 15:59:56 20 /min [facility] Oxygen saturation in 2022-10-22 15:59:56 96 /min [facility] Arterial blood by Medical Ce nter Pulse oximetry Systolic blood 2022-10-22 15:59:15 119 mm[Hg] [facility] Diastolic blood 2022-10-22 15:59:15 77 mm[Hg] [facility] Body temperature 2022-10-22 15:00:00 36.94 Jo [facility] Procedures Procedure Date / Time Performed Performing Clinician [facility] REPORT OF PROCEDURE - 2023-01-09 15:10:34 Hugo Hathaway [facility] ENDOSCOPY [facility] REPORT OF PROCEDURE - 2023-01-02 13:51:06 Hugo Hathaway [facility] ENDOSCOPY [facility] TISSUE EXAM 2022-12-27 13:09:00 Hugo Hathaway [facility] COLONOSCOPY 2022-12-27 13:00:00 Hugo Hathaway [facility] EGD 2022-12-27 13:00:00 Hugo Hathaway [facility] (ESOPHAGOGASTRODUODENOSCO [facility] PY) COLONOSCOPY, WITH BIOPSY 2022-12-27 12:59:00 Hugo Hathaway [facility] COLONOSCOPY, WITH 2022-12-27 12:59:00 Hugo Hathaway [facility] POLYPECTOMY [facility] ENDOSCOPY, UPPER GI 2022-12-27 12:59:00 Hugo Hathaway CH, I [facility] TRACT, WITH BIOPSY Medical Cente r URINALYSIS W/ REFLEX 2022-10-22 12:55:00 Breanna Ann [facility] URINE CULTURE [facility] US ABDOMEN LIMITED 2022-10-22 07:46:49 Breanna Ann [facility] CBC W/PLT COUNT & AUTO 2022-10-22 04:32:00 Breanna Ann I [facility] COMPREHENSIVE METABOLIC 2022-10-22 04:32:00 Breanna Ann C HI [facility] LIPASE 2022-10-22 04:32:00 Breanna Ann [facility] C-REACTIVE PROTEIN 2022-10-22 04:32[facility] AUTO 2022-10-22 04:32:00 Breanna Ann CH I [facility] XR ABDOMEN/KUB 1 VIEW 2022-10-21 22:43:00 [facility] Care Planned Activity Planned Date Details Comments Source Future Scheduled 2032-12-27 Screening for malignant [facility] Test 00:00:00 neoplasm of colon Medical Ce nter (procedure) [code = 907048517] Future Scheduled 2032-12-27 Screening for malignant [facility] Test 00:00:00 neoplasm of colon Medical Ce nter (procedure) [code = 017646209] Future Scheduled 2032-12-27 Screening for malignant [facility] Test 00:00:00 neoplasm of colon Medical Ce nter (procedure) [code = 040361535] Future Scheduled 2032-12-27 Screening for malignant [facility] Test 00:00:00 neoplasm of colon Medical Ce nter (procedure) [code = 929321211] Future Scheduled 2032-12-27 Screening for malignant [facility] Test 00:00:00 neoplasm of colon Medical Ce nter (procedure) [code = 537329482] Future Scheduled 2032-12-27 Screening for malignant [facility] Test 00:00:00 neoplasm of colon Medical Ce nter (procedure) [code = 450205405] Future Scheduled 2023-12-[address] [facility] Test 00:00:00 Counseling and Screening Med [facility] Center (12+) [code = Tobacco Cessation Counseling and Screening (12+)] Future Scheduled 2023-12-[address] [facility] Test 00:00:00 Counseling and Screening Med [facility] Center (12+) [code = Tobacco Cessation Counseling and Screening (12+)] Future Scheduled 2023-12-[address] [facility] Test 00:00:00 Counseling and Screening Med ical Center (12+) [code = Tobacco Cessation Counseling and Screening (12+)] Future Scheduled 2023-12-[address] [facility] Test 00:00:00 Counseling and Screening Med ical Center (12+) [code = Tobacco Cessation Counseling and Screening (12+)] Future Scheduled 2022-11-03 Influenza Vaccine (#1) [facility] 00:00:00 [code = Influenza Vaccine Me dical Center (#1)] Future Scheduled 2022-11-03 Influenza Vaccine (#1) [facility] 00:00:00 [code = Influenza Vaccine Me dical Center (#1)] Future Scheduled 2022-11-03 Influenza Vaccine (#1) [facility] 00:00:00 [code = Influenza Vaccine Me dical Center (#1)] Future Scheduled 2022-11-03 Influenza Vaccine (#1) [facility] 00:00:00 [code = Influenza Vaccine Me dical Center (#1)] Future Scheduled 2022 SHINGLES VACCINES ([address] [facility] Test 00:00:00 2) [code = SHINGLES Medical Center VACCINES (1 of 2)] Future Scheduled 2022 SHINGLES VACCINES ([address] [facility] Test 00:00:00 2) [code = SHINGLES Medical Center VACCINES (1 of 2)] Future Scheduled 2022 SHINGLES VACCINES ([address] [facility] Test 00:00:00 2) [code = SHINGLES Medical Center VACCINES (1 of 2)] Future Scheduled 2022 SHINGLES VACCINES ([address] [facility] Test 00:00:00 2) [code = SHINGLES Medical Center VACCINES (1 of 2)] Future Scheduled 2022-03-[address] [facility] Test 00:00:00 (12+) [code = DEPRESSION Med ical Center SCREENING (12+)] Future Scheduled 2022-03-[address] [facility] Test 00:00:00 (12+) [code = DEPRESSION Med ical Center SCREENING (12+)] Future Scheduled 2022-03-[address] [facility] Test 00:00:00 (12+) [code = DEPRESSION Med ical Center SCREENING (12+)] Future Scheduled 2022-03-[address] [facility] Test 00:00:00 (12+) [code = DEPRESSION Med ical Center SCREENING (12+)] Future Scheduled 2017 Lipid panel (procedure) [facility] Test 00:00:00 [code = 21796684] Medical Ce nter Future Scheduled 2017 Lipid panel (procedure) [facility] Test 00:00:00 [code = 08742416] Medical Ce nter Future Scheduled 2017 Lipid panel (procedure) [facility] Test 00:00:00 [code = 23307593] Medical Ce nter Future Scheduled 2017 Lipid panel (procedure) [facility] Test 00:00:00 [code = 95526054] Medical Ce nter Future Scheduled 1993 Screening for malignant [facility] Test 00:00:00 neoplasm of cervix Medical C enter (procedure) [code = 262568731] Future Scheduled 1993 Screening for malignant [facility] Test 00:00:00 neoplasm of cervix Medical C enter (procedure) [code = 355449132] Future Scheduled 1993 Screening for malignant [facility] Test 00:00:00 neoplasm of cervix Medical C enter (procedure) [code = 940111046] Future Scheduled 1993 Screening for malignant [facility] Test 00:00:00 neoplasm of cervix Medical C enter (procedure) [code = 162013623] Future Scheduled 1991-10-13 DTAP/TDAP/TD VACCINES ([address] [facility] Test 00:00:00 - Tdap) [code = Medical Cent er DTAP/TDAP/TD VACCINES (1 - Tdap)] Future Scheduled 1991-10-13 DTAP/TDAP/TD VACCINES ([address] [facility] Test 00:00:00 - Tdap) [code = Medical Cent er DTAP/TDAP/TD VACCINES (1 - Tdap)] Future Scheduled 1991-10-13 DTAP/TDAP/TD VACCINES ([address] [facility] Test 00:00:00 - Tdap) [code = Medical Cent er DTAP/TDAP/TD VACCINES (1 - Tdap)] Future Scheduled 1991-10-13 DTAP/TDAP/TD VACCINES ([address] [facility] Test 00:00:00 - Tdap) [code = Medical Cent er DTAP/TDAP/TD VACCINES (1 - Tdap)] Future Scheduled 1990 HEPATITIS C SCRE[facility]ING [facility] 00:00:00 [code = HEPATITIS C Medical Center SCREENING] Future Scheduled 1990 HEPATITIS C [facility]CRE[facility]ING [facility] 00:00:00 [code = HEPATITIS C Medical Center SCREENING] Future Scheduled 1990 HEPATITIS C [facility]CRE[facility]ING [facility] 00:00:00 [code = HEPATITIS C Medical Center SCREENING] Future Scheduled 1990 HEPATITIS C [facility]CRE[facility]ING [facility] 00:00:00 [code = HEPATITIS C Medical Center SCREENING] Future Scheduled 1987-10-[address] Human immunodeficiency [facility] 00:00:00 virus screening Medical Cent er (procedure) [code = 393282545] Future Scheduled 1987-10-[address] [facility] 00:00:00 virus screening Medical Cent er (procedure) [code = 410793238] Future Scheduled 1987-10-[address] [facility] 00:00:00 virus screening Medical Cent er (procedure) [code = 887128992] Future Scheduled 1987-10-[address] Human immunodeficiency [facility] 00:00:00 virus screening Medical Cent er (procedure) [code = 258854919] Future Scheduled 1973-04-14 COVID-19 VACCINE (#1) [facility] 00[facility]00:00 [code = COVID-19 VACCINE Med ical Center (#1)] Future Scheduled 1973-04-14 COVID-19 VACCINE (#1) [facility] 00:00:00 [code = COVID-19 VACCINE Med ical Center (#1)] Future Scheduled 1973-04-14 COVID-19 VACCINE (#1) [facility] 00:00:00 [code = COVID-19 VACCINE Med ical Center (#1)] Future Scheduled 1973-04-14 COVID-19 VACCINE (#1) [facility] 00:00:00 [code = COVID-19 VACCINE Med ical Center (#1)] Future Scheduled 1972 Screening for malignant [facility] Test 00:00:00 neoplasm of breast Medical C enter (procedure) [code = 136034635] Future Scheduled 1972 CT Colonography (combo) [facility] Test 00:00:00 [code = CT Colonography [facility] Center (combo)] Future Scheduled 1972 Screening for malignant [facility] Test 00:00:00 neoplasm of colon Medical Ce nter (procedure) [code = 382902245] Future Scheduled 1972 Screening for malignant [facility] Test 00:00:00 neoplasm of colon Medical Ce nter (procedure) [code = 811675275] Future Scheduled 1972 Sigmoidoscopy [code = [facility] 00:[facility]:00 Sigmoidoscopy] Medical Cente r Future Scheduled 1972 Screening for malignant [facility] Test 00:00:00 neoplasm of breast Medical C enter (procedure) [code = 307477942] Future Scheduled 1972 CT Colonography (combo) [facility] Test 00:00:00 [code = CT Colonography [facility]i [facility] Center (combo)] Future Scheduled 1972 Screening for malignant [facility] Test 00:00:00 neoplasm of colon Medical Ce nter (procedure) [code = 165617087] Future Scheduled 1972 Screening for malignant [facility] Test 00:00:00 neoplasm of colon Medical Ce nter (procedure) [code = 475991189] Future Scheduled 1972 Sigmoidoscopy [code = [facility] 00:00:00 Sigmoidoscopy] Medical Cente r Future Scheduled 1972 Screening for malignant [facility] Test 00:00:00 neoplasm of breast Medical C enter (procedure) [code = 415221752] Future Scheduled 1972 CT Colonography (combo) [facility] Test 00:00:00 [code = CT Colonography [facility]i [facility] Center (combo)] Future Scheduled 1972 Screening for malignant [facility] Test 00:00:00 neoplasm of colon Medical Ce nter (procedure) [code = 772276638] Future Scheduled 1972 Screening for malignant [facility] Test 00:00:00 neoplasm of colon Medical Ce nter (procedure) [code = 974562556] Future Scheduled 1972 Screening for malignant [facility] Test 00:00:00 neoplasm of colon Medical Ce nter (procedure) [code = 307880495] Future Scheduled 1972 Screening for malignant [facility] Test 00:00:00 neoplasm of colon Medical Ce nter (procedure) [code = 540707987] Future Scheduled 1972 Sigmoidoscopy [code = [facility] 00:00:00 Sigmoidoscopy] Medical Cente r Future Scheduled 1972 Screening for malignant [facility] Test 00:00:00 neoplasm of breast Medical C enter (procedure) [code = 697496575] Future Scheduled 1972 CT Colonography (combo) [facility] Test 00:00:00 [code = CT Colonography [facility] (combo)] Future Scheduled 1972 Screening for malignant [facility] Test 00:00:00 neoplasm of colon Medical Ce nter (procedure) [code = 339189666] Future Scheduled 1972 Screening for malignant [facility] Test 00:00:00 neoplasm of colon Medical Ce nter (procedure) [code = 917354892] Future Scheduled 1972 Sigmoidoscopy [code = [facility] 00:00:00 Sigmoidoscopy] Medical Raye r Encounters Start End Encounter Admission Attending Care Care Encounter Source Date/Time Date/Time Type Type Clinicians Facility Department ID 2022-10-22 Inpatient [facility] [id number] [facility] 07:03:44 BREANNA 2022-10-21 Inpatient ER [facility] [id number] [facility] 23:08:40 BREANNA 2022-10-21 Inpatient ER ANN, [facility] [id number] [facility] 22:44:23 BREANNA 2022-12-27 2022-12-27 [facility] [id number] 11:56:00 14:44:00 Encounter [facility] 2022-12-27 2022-12-27 [facility] Mag [facility] [id number] 11:56:00 14:44:00 Encounter [facility] 2022-12-27 2022-12-27 Outpatient EL MAKI HATHAWAY Surgery [id number] [facility] 11:56:00 14:44:00 [facility] 2022-12-27 2022-12-27 Surgery Mag [facility] [id number] 13:00:00 14:00:00 [facility] 2022-12-27 2022-12-27 Surgery Mag, [facility] [id number] 13:00:00 14:00:00 [facility] 2022-12-27 2022-12-27 Anesthesia Bria, [facility] [id number] 12:59:00 14:00:00 Event [facility] 2022-12-27 2022-12-27 Anesthesia Bria, [facility] [id number] 12:59:00 14:00:00 Event [facility] 2022-12-27 2022-12-27 Travel [facility] [id number] [facility] 00:00:00 [facility] 2022-12-27 2022-12-27 Travel [facility] [id number] [facility] 00:00:00 [facility] 2022-12-25 2022-12-25 Outpatient ABDIAS MONTES DE [facility] SLE [id number] [facility] 00:00:00 00:00:00 [facility] 2022-12-25 2022-12-25 Travel [facility] [id number] [facility] 00:[facility] 00:00:00 [facility] 2022-12-25 2022-12-25 Travel [facility] [id number] [facility] 00:[facility] 00:00:00 [facility] 2022-10-21 2022-10-22 [facility] [id number] 21:25:00 20:00:00 Encounter Breanna Ann [facility] 2022-10-21 2022-10-22 [facility] Gerber Reshad [facility] [id number] [facility] 21:25:00 20:00:00 Encounter Breanna Ann Amna [facility] 2022-10-21 2022-10-22 Inpatient ER MAEGAN RAYMOND [facility] Gastro [id number] [facility] 21:25:00 20:00:00 Results Test Description Test Time Test Comments Results Result Comments Source Tissue Exam 2022-12-29 11:11:00 Test Item Value Reference Range Interpretation Comme nts Case Report (test code = 104) Surgical Pathology Report Case: [id number] Authorizing Provider: Hugo Hathaway MD Collected: 12/27/2022 01:09 PM Ordering Location: [facility] ENDOSCOPY Received: 12/28/2022 09:10 AM SERVICES Pathologist: Cherelle Trinh MD Specimens: A) - Stomach, stomach bx's r/o inflammation B) - Biopsy, Terminal Ileum, terminal ileum bx's r/o inflammation C) - colon, colon bx's r/o inflammation D) - Polyp, Colon - Transverse DIAGNOSIS (test code = 3220) [id number]gNsMhLuWu p naUTzPRlydlWxBZjtoQenDTGbFXoiWB7wbXvsoY p7tCmbQTDfkqV5dWGuPBivo4ywMSX1n4ayingzF MDrQXtiRs2ihNWwgNqaWjUuRKHuNZh5zC68RNOa mG1gmHLqQCx7BBRplTNalmPxHmNeYYAskHKqpAM 1RMDiQS9iomeqFKhoYBoyDKCcotJ0FPZblYKkV5 FmQFDiXD1hkhemOMO7NQyzNRLrNTI9AuFkAEMrh 5Aimbd2FvTgkLLeIXqziHXoiaxentAiEVCiE8XD OREDYRjtJgWMRR7TAURWY0EVYNxlCUZhPCbdg2I mvZQlDK79yfBxXTI7uCZzqRPse1QdFLealBcblu StH4KjdoYeX1DrcVHqvGC0eIqzn3b5bEKay8Tqx UHczv0seY6jKFOlpaBjD7MosPKbYlLbcMduiFhq PAA7zGKifVMpt8XeRVnwvZubxEctGQUvPHWthGw 2JLXyiUHsH9YbGJXwdiBSTLspaFr5DBEdd3CblF 75ZNP6oV1dyZGrLRLruMvhs6zdDHRsqZBrjEKfj HPns9YpOK0zqAsga7MeUPqip7Ngu8TbDC8mf85w TAJtsvmhKYNsLjAFOMWKPX7BIMUSTCXVUQcvBbJ BDN5TGUZKZ9ETXVegSEDyFQSmQJ47PZHgEVdpKL Xyp8YeLA37Z56kDJL8hJQrIXTgUIKdxkAwNVB5a Wffk2XeBFZsI6wteGUxjBGoHNGvtkMwpp9ak7ov wpvlqBSyccMsoHxicT2wZBVwj3xqD6azMYvoY6x qynqxDMJvcphgQGKiJwXDP0mUSupmPqLUMR4SMJ VGA6TZTVhmCTStBEEeqF4oyBTknOQvt1FiGWipl FzflYkbBTOlt31mbWTxaUPoZbVnvUCcbakcJCwn GuvdpQ0nkGyffpAraeY2aFSooJHhpK4rZQFhr7I fmTQfwEBeIU1kXRKmm1QfceVfPIOvnJO1SSFnQ7 hpdGVjdHVyZVxwYXJccGFyIEQgVFJBTlNWRVJTR GLHC2mTZrQHZ2mNIYahTN6UZPNRO7QHIMcfvVTq ZU4VlEM4hYGbSQZzFU4tjHCuqUGuBT0VAVWdYGg lNP13CQ4gYYImxiKwLMVgTZQrUAVveTIgtQEqu9 fzjTZerQFct6UwjHYwjIyzvqEiDLhoa4NvRNnxY SUuYY7qvSsrZDMxHY1cIJRoH7exiV2bpft5IiSb QSJjWjK6IRBgtqA6Cjz7KESbZRtya4nxa9OwGFX dTRf9wFwjWqVbCJOkv5ciktVxMjRrEMReLWBkKZ OzjBKsW173r3osl9pxzoZcyJU9ZUZvGJC0TOqsj sHqubO2NYjcdFJjKcP4QVofuuKyIIkakmVmxdGx Pcm6GCPlK545FDE7zCxzh1tkJSB9XKZhDZBfXyP cLh7vlRHiP834CYVvIXUZTDUreDz4PVNhadLrbq TiuAHEu604A761s1ymNKQjufVyuCaDxhzfm0hsA 110PYZupIXbajShKnDwYVEepSHjwZT1ZXMmUN6n xvinBJgaSYhzNVLhcaQ2NQTebZQwN1EbMFHcEN7 sozhfKNC3UFvdQOZnCIK4ScZwDBFhq0Cbqia3Jv Ujyw4suh25BQS5g9EowSxcROM3DUD1JgOeMf0zg OWhVIOzIR9vOeIzhOQaALZbom92pDqdXLpfWTK3 XFUggiDux5Gsz8yuCaLzhhDxF5dtC7XqCQAwFSO mFKOoItNlojSmt5Pen0RgjUMjuIz0d9kbIONvYK ZrjDgzx4zhWKB3MJOhjEMeJ6ppyI8yGSEdXU5fa owey7kpQVspIHuzXDLhoVJ5wzK6QSDznYQsS6Fk wI3qZGUkZYmeZADjnze6KsHsIk8pjCHxdEzhJDn zYmtwYWdlXHBnbmNvbnRccGduZGVjXHBsYWluXH BsYWluXGYwXGZzMjRccWxcbGFuZzEwMzNcaGlja JufWAdkFdAzPJBcRXteF6yhGtBgUrAeRvu9HCEj cZAzMTOdMad8APOiyYXtNPIPiNrsyH1zZYOwbJf glC4ceXD4XRPrzyQqfMSNbC0yZRTXcN2mPqQ1DS UmEmv3QLQ0XxJxmXSyaO7= COMMENT (test code = 3359) q2bniXEjASUpjDUhGOYoI5oolzLeEJBobREcX6Q kzitcCQhfBA4fOY1ecJywdUTxhAVoQOFuMdMch8 zgg488hIKim9moPIIEwxociLd0tRtvA51xh8W1R eyhN29dhCSoUWK5QVVbMMIqhDAnNRRySHW3UIUs fOEoB2liXNSoZF5kbzdoFKnyRStsFDLvgEE4NSL ywMKoP0LfDDPmYPhwFSGviza2EnWvUq2xjUJkhB cyMFxwYXJkXHBsYWluXGZzMjAgcGFydCBDOiBUa HUaH4uji60eAtViylPuHJ5fUNZxx02phJ4cxTys QDgsmVyeZXBshd8artptNWbvMB6gicZbTVBmTwo jIGNhbiBiZSByZWxhdGVkIHRvIHBhdGllbnQncy QCkk0juarePDGqy6Qbg8Fcg4Rpr5QfTXPveRAct 5ZxLRTzkRRatQfvllBbaAjqoU4kbSKkxIwdNWWh dWacGEaeVgGniZlbzuXtabDfWWq2TSR8zAC9eDH bApsgMONxRNTtvCYAYJQjxPaoRJLda6tulokfQJ sxmEtwz7znMPohJQ1rmcFexYzwWFs2YB6fliPjP YXcdV3iWYHgAtMfPITym10nGYZcgJlozlY4jHKy TATyiI0cpGEqdBL8m2M1AHSaw1WsMXRbu6Sod4T bJIJex6OgEOIhTTHdtQMmuIEwaFPpAUTUqDiruP BhtTIam3OrQOiuoYohgoSlHCRytW3blgVdQIvwU XJ9 CPT Code(s) (test code = 3357) i7xvmYQiZPDbhQQxZBBsR1bgqaDtFJFknXCg Z3B nhuqiZYjiHZ3tJB1jiLhgsACafPZlIWIuRiHxe7 xdo953gMEhm2leASVDbbcjwIq9wMtfO64sy0M7C iudT36ukFUbHWJ8YUHrBZXfzCUlBDUcOVT3FMIt wRItL4oaJQWjAW7oehhzDFnyQSzoVUIiiAX8AWZ esPLjP7GxYPEnLKxhGHRrlcd5XcCvJb6kdDHhcO mlXCuvIRJpMGJhDVbaWUGaBiObMLjcPHI3RCkgB XJ9 CLINICAL HISTORY (test code = 3356) t4vshXStKHLgwSUzNYEfP0jataJjXYG zbGOpW1V dcbvmJRqsJY1oRV7vnOzewUWjdZEjFCXfVjJiy2 gbq003kSUyt2ueCLZVoisbjDw3vOmrV87dn4N9J xqoF08ywGAmLEX5VNNpSFFrvSVxBYJnRXF2TCTf uZZqQ5ltFJEhPU2fdhubZEhaSLepTFWnyJE8ZSX mvFSyQ2DzUADdWEbbGLOdpwk5YwKcPj1ysEVapQ cdKHzyBXDiYMTkIAxqCZXvOtMiXnR6p6FoYVOtT LD5b87loDueMfwiF6UurB0cdeFtwBVaYPIeTVno zKueg6MjVVOjJ43anScvG0U4gN2uZTLIMk3zse9 asCBDRMIuCuT9eONuFIIks87ckoefNWQ6 GROSS DESCRIPTION (test code = d1qrfCUdCKOgzESLHGFdEDXrPH4pzCqqmHn4 d [phone]) eQFSwrjJ0gHLlKIgoj3dvZQR9a8gochDMBglmCK WhNU2wWGupUMJeZV7cStBlTFWnWiHpWVSwjQKip rWbHfSdPEDowTYfjSF1NFIeVA2duwrjRSszZIzu KYUukyX5DGQoqKJxU8RpQLIkSA1ojtyqIEU1QPB UYrleIu9caFOhfHnuQeAaKsGwKOSpSLBiZPJksO dtEWYyIHi4kY3IZbhsB59dh3Y9Kuq7CEHiHWMcS 2EgTJ2vQCPyzQJmR88VSzkrEKF0PCLGGxcjWzdn vBhxs7QdtZMyCSNnDFiexZDnMHDwPJUhFEnbPqE EKePsEqHlZTZaGVOvKOGsPRh0NYjcVhNOVPQ7CX ZlZzGdXXr5DKlfDHyjjYIxXKGbJMRrNVFxSWtpb yT3l0zmUAQkfRWyDXC4HGwzo7jfHJewCGM6JMJy QjElMWMlAE2NBhBqVIT7OHB9YXFeBrH5TLr9FPH NUdWfLsGcUsrsRdOySVXqHPg9ZOv5MAvUWtP1Cg RfIIM8TeymREA2PUljCTs7VOVaQUxfcvNkEDdeO gjiJXypC70qrBSiQSGQSvroqSKoeixxxcOlKWDw WOR2t09kV8kzjLBwTA0HOIHyvwJfKLypnArcnB2 cZnMyMlxsdHJjaFxlcGljTmVzdERvYzEgDQpcbH RycGFyXGxpbjBccmluMCANClxjZjFcZnMyMCBSZ MZpzMHrMCGxpeQou8BhVKqbszXnOCVdhQQvPLoq vOjnuUlcZKUnpZvmivLeJ9M3ieHzWO2wAJUsXVI dT8AxMVAlK66nKPYpdV2aMKQpEB0xXMf4RBVsEI HfCvmth4LdiVQquTVeCVByKK50eWCfsZtcPCHgx b57IMzpx8lpe97ydCW8hTXlkLIdEdKdY77rudWz TQRfdgxccilrlA9xa5f1XFFpfr3sZQBnZr7wSpY tS02mOBywuCLuNJMpUQJnpCKvpQF6NZXceJ3pcR 25nfIyqjSQJA0kyKTdLV4VMMMieeXVUyhlKVQdP POkvIYHj0IfYZPMHdvdJyMuFmCzEbIUUmdvcBdy OiQxkQHuUbU7XNEyeAEpKFT1YJ9jzLyhOBQyYRy 6HGyuFNHzU1QeE0UcDOkkKwAzQJxaHHMfJCYuQV yvVEHuH0XHNCTbGUA6KEe2HAAcPDm1GOo3WG7LK nHrGRLvWxJ1RfObYzExXPp9AQlqMH8RVVnyRhB6 UON1XhD2QNi5FDZaHMQdZsAaOFNkSDZcSHhdwZW bOK6bqJhcKZRvAYSnVTE9QMQdeUENd2HoQNAsJD hGJdTUtB4uf9sxCEBgsp3etgEmFOqmAJRcBARls mCHVquePOIlOC5GCMGaDUeeABl5umLzLJGkPcJx ILKtQ79uf2ZLk5JyDD0OBGz5utIfzppudM9nOLC fvzCab9AnPYasxPmnMNWdMiXyZYymH3MdXSBeFn AnJlBoNXd3STAdaH6cIs0vsWGmpK8bnNHbUKywS PL8nRBvFYKwLUUpUTJnDM44OMyIXYYwjcPgETkt bWVkaWNhbCByZWNvcmQgbnVtYmVyIGFuZCBcdTg pTcOvQAg1H6Hgsr2hytCrRTqyQHLaIQUwi0UccA DjFSLyNSAcvCWoMUkhnXldrkWyd1Q3ELQqu5X8I AUrhlAncMPfhVJqydAjH2hdCeIsjlPsgXkdSFAr k18fLL8wDVZqRIRxtOlvw6zyB3iiZYIaLLE4Ja6 knRYmCMAaagD8u9GlPUaxFPOvJjjpXWSyAIqek4 PuUTLqhPJJf6SaEP7DNYIxghOUTpwyFBPtVAMzp GJTd5KaNTCPUwioXjJoCqEuGfPPIzhaqLtdJnMq oONzFoD7GWJozTKqTTW0OT7dkErqWYYjADu6ANq cMLAmE9EtQ7IfCDxsPlNuLUpkWTTiQCRqTJrtXK FjJ5FSOAYdDDS7JLe9WHXxTQn5KDr8BI3YNoNmL UUfLjO5SlKaIvLaWAq2ILtyFF2TVMapCgT5KHA2 MNA7TSb0OWRbTJXzJzVvHUDoHPZxYTmecZMjBI7 khFlpOJBdOBApVUZ8GSXxpAVZf1BvHDOmYGrDKx Qye7dcfyerZLTiKNjxkJEdJKMHPdlwiXBgsyinb FScjEyvqgQoONHtaQKIXPQ8PN1mOYDZDmymyRNo PSAurPgoFPeytW6xAGKcCvErNWMdQ9rlJmIeIE4 JBBAvJTuwmxOdLLUsG5EreyOnOWlaRBVamn5hiX drVVwgGxNwRVWys5e1mVR1jOFxoPF2yPOyzXooW uYnYW6pqOUyNP7nBSlsZJtsycZlf6UvSI42fQCe loItnbTxRSK7NeCtAWklVOJvz0jcqdLeWVUpIE7 3cFDuyOxuDNEwjb90WGnuo2zqt24alHZ3fUKyaS NeHiHgH35zwlYeWQYpnvfsbhhxcS0ep8w0DMFop x7sSGRcOM7sGbBhF41aMOrccOXmDPMzXDOhkLAa wTE5LXIynQ0tqQ47nrDmkpHQSJ1xnAQrMC3CPSV jCTgpiRngNDZeDUFMUexuFAIpFRwzg8WfCWdsfS zeYCReCsQwFWsrJ8TtUBQqMsUkTWmvITAmD57dm 7ZRj2Fed2yntWicn4LejKQeBG1gwRCsQA9Po0zx VWRzxLLcCPS5NClbk0roMJwfLBG2TZWlXlUlMLO cBH1TNnJeAGJ3KQQ5DIMkLfU2IWu9EBOXCvAaHo LiUxndJySaQMYoZUu5EDq3VWmNEiP1UwWcVBT7T iOvSIJ2DMkgKXl1DNSfVWkddvOfVKuxZfueIEtb T03qkUSwKJpgVuHvDRuudZkiYXKfKQF8ET1RFQ5 yOF1wbEVwDDBtvI4iGT3mBGErvnU0GBYhRCblKF IgDQpccGFyZCANClxwbGFpblxsdHJjaFxmczIyX YKoyFVSAPL9RA5wSFZNFbhvxPPwMLTwtLzvHMro nR4yWFDwYeZaSREzZ0zzFmPtTT3LIMNhKPsusrJ wCMWwI4ChlcJgIEhmYLPzya8piJhyLGtuXlRaXM Zqc7b3mEJ4fRXfiQH4vUDspStkQgWtTU2vvTKgV C1jVOmeGBlgxqUnd9RyWP76cMNptwEbjeMrIeBb KQ9kamZnp7XeY24wi41ksV4pxPBySCMcGNYeSBH uqj75BBmru8ghkY2vaYRhkNDeVtGkI05cevUdFU ScajhtplekbN1jd1d4IHDule4dZJWhXf7xNiLfE 62oQFisoTFmJXRqWNRmjULnuPU2HPRblF2cnU00 mlEjuuEHBM2qjFTvYR6FGUEvPXqazKpiHKZeEUD WEmlnCDCbCZkgc1LtYZmhqAlnFSYmUqXjOKdzA3 ZqJFRzLeVcJAO4fnsnXIMnjublIXmhCEYnN47hr 7HXq5Pws6xxeReev8DpmDSgUW11AXNuiSKqSZD5 UM7spOpdVGArTLctsSJkTUAYCb9= MICROSCOPIC DESCRIPTION (test code = z5ssbNWmUDEheDJwTRHlW0deyvWuYJ NwbHRwZ3B 3371) yyparOMdkUR9sGM5leMxkaUJsmJLeWIYbIfOlo2 blu192cURxm8fyBCYElvoaiUj0oBbcI20il5F8J hzdU70eiKLtFAO1OLDaDDHssOYjLIIsWGF6CLAm rALhS7zuYBDwCC6sxgwgFZvpMTiaORGefHH9BOD tzKLmI9ZwBLLpTOmvBWTbhkd6WqJbFh2yfUScgT zrFNdsQSFfMUVvQNiwBDIlDsKhQVUhQe4gnMPyQ HBhcn0= Gross assessment was performed at (test [facility] enter, code = 2777) Department of Pathology, [address] [place] [id number], Technical component was performed at [facility] er, (test code = 2778) Department of Pathology, [address] [place] [id number], Professional component was performed at [facility] enter, (test code = 2779) Department of Pathology, [address] [place] [id number], [id number] 11:11:00 Test Item Value Reference Range Interpretation Comments Case Report (test code Surgical Pathology = 104) Report Case: [id number] Authorizing Provider: Hugo Hathaway MD Collected: 12/27/2022 01:09 PM Ordering Location: [facility] ENDOSCOPY Received: 12/28/2022 09:10 AM SERVICES Pathologist: Cherelle Trinh MD Specimens: A) - Stomach, stomach bx's r/o inflammation B) - Biopsy, Terminal Ileum, terminal ileum bx's r/o inflammation C) - colon, colon bx's r/o inflammation D) - Polyp, Colon - Transverse DIAGNOSIS (test code = f0hymLVaLWOcb3zjWQYilP 3220) FuZzEwMzNcZnRuYmpcdWMx IHtccnRmMVxlcGljMTAyMD mzON0faYhypYz8bRreWQDs soL7nRAgCMrjf1wgVAC7y0 ffzjckKRVsOVeeFy5vyLVb iRcrZuVfDBBzVNz7uA37FM QqsZ1nyTPqAMj5QYWibDEz tvUxUhDvEMKlcNDvyFC4JY EwFA4eiiddYOckLLcmRCVe teH6EYJzrBJjT6UfOAVaDP 3ylcacSCP4NUceWQPhHLQ2 FwWqLXCsi4Ymhfy5FjBvmE FyZFxwbGFpblxmczIwIEEg C0EBKCHPZArpYpBDXM5JEI ZQE5GXFMhbMQLjPJycd2Tl fCVnJE80gvEbHOQ6aTYovW Knc9PnUFlysOpzmsTwN1Fg amWfB5LmfFCzfGH8aNvug1 t8vGSls3ExpHDrbx5aaW0n ZTEvfsIaO6ElnIXsKuQncI fvoPkaHMB9xZLhqMZyr4Pq IHdpdGggbWlsZCByZWFjdG r1RVMqaEAeJ8HiBTWrcwXP ATvkeQi0IPDcu3TojP67XV I2jW6unSCvLGHloOkto8px DNHjeSSrrUOyuMQkd6GfER 9dgPtjr6RxSVpbk2Kon4Bw TS6rs04kBXMswfprKEIuEy QBVECPJQ4NVMHMCOWKDRqy DgBIXC3CIFZVB5DNDQijXN WgCIZmIR62ODOpNIetQNEm o0FjBF57W66nIZT3wIZdTU SsMJHpeoVyCES2oPmia1Uh OVGbC9efcUGojDNeVIZapl Otvr6wb8tylcchyDLcnaWv tCejwS7uPTTxw4ltQ2uxIN euO4yrmuheOYQrbfldNHTo JxVBL0dVMertHhNHLD7UIJ GIT1VXLNfeAZFuCRXblK5p lZIkdHGgd3RxPLqwvRkfrC foUSKlx59nfGXrqKTkBfDd cENbalhcEVusQcjpxA6huN meqtXkzyY0uGVfpFQrqU1d NMFzs8KwqGIgcXXbRV6eHS Cqn0AffvOvKKPxrVX5QZUs X2xidHOsgPBzKWxmBGFbiP FyIEQgVFJBTlNWRVJTRSBD E8rWQfTQG0zJQJszQW1YIA XAC9JPOIpadCBcXU6GbHA1 tVQsEZYsPY8qkWOvxUSkSQ 7ZTSLrHMvjQR96NI8eYWHo cmVtYXJrYWJsZSBzbWFsbC Jsr3njoQRipASgt1XnnPWu cPkdkdRpTNlle4RdCFepQE WiGD3mxYyyCKRmZV0eHRTn Y8acfO9xvvr0GjVyRXObDd P3CJXqrjL9Xyi5HNTjFOkb y8sbz5DtWCZaFWi6cBbuGx MwTIEht2qlhzToQbXoPQId CNVbIDNuzGGlZ808g0gho9 tassNkiNF4BNLuPKC8SRyy flZepxV9FAgeqQUcDdF5XK tccmVkMFxncmVlbjBcYmx1 QTXaN215BNS4eKdyz9zzHS S3ZKQjBZDcQeBkOr7yqTNn U536BVCbOJXQRLTiuOt7AD VrdhGfouXezRMCw792U840 d0njCRSsuzWvsNrSggyag4 gbY481YKTulVQoojTqAkYb WKRcmUNvwVZ5OZKvXF2jur guEXyzKIygBHIvzlU3YTUw jERhY1JeAQAuAZ6hiqjiLE G3IQquVTXuOTA7WsAvBXWm d7Uaqbf1OmEpej2awe63RS D4f8DzxAsbVMI8GDQ6JkKe Bb6svZFxOTUxJU3uXpFycW LySCZbmb71fBsjKDjiKPV1 LGRhtjOph3Ahd5pcJyRxlm FaO6ubB4PtCMUoVOGaIPAs XfKhndBpb4Bpb2XjbIEsnA l8t8loSSPpCJSgvGkxs8ct TIW4XQIpgOPdY1jmjW3fBD XdZB9ghxyic9hjSRjwMZhb ZNKtqXU7yhN7XOTtyCViM2 XhzG4rUQCiGBrcMEVrvng7 BbSpGv3eiERmtAhgXAfiSw twYWdlXHBnbmNvbnRccGdu ZGVjXHBsYWluXHBsYWluXG YwXGZzMjRccWxcbGFuZzEw MzNcaGljaFxmMVxkYmNoXG FaQCusO6nxPzVqWfSqQnc0 IGSonEHmLPWvEbf4RYTexF FmVPULkHxmiB1fYEElqFsw gM1enEQ2HSBzitQtcZCSiZ 8bHDHNiA7wOpE8NUXkZww4 TXY4CpFhmDCeqG6= COMMENT (test code = o5afpZLxIHMbqNDuROSoY1 4225) kwspCwLJEfgDIhZ8Crkuii VEduBH0cJW1zfVixmKSnuP JiDDXgSoZac4blr374bMIu x9tcGGSHdkpvtUi7tUydV8 4xu4E0OnxrX19kiEVsDCA6 JEDmBMUgtYGkWPAbUJJ7JC ZzjRJlE6gjBOAeUS1gsigu AFzaSFbbZMBvjLG5TFLfuI JoO0PoDGVcVEyfOPCamnx7 BlYlMo7inLOarTokFUfmBS JkXHBsYWluXGZzMjAgcGFy hKMIJuJAjHMcU0mpw50cGp VohtKiWH9dOJQmt41xqX3b vKxoJMyshSclDMSdzk4ufq ubCZfsDT4dctTrEQDrUoix IGNhbiBiZSByZWxhdGVkIH LzMOEqoFgjenRsanBKea2g lydiNYRpi2Gbu2Dmy1Rvn6 ZnJBDscIXsl7MpVPIjeIEy tHkcliMuyDhqtY1uiTSfeS tlIGRydWdzIGluZmVjdGlv prFbvhRnYRq2ZCJ9eDM0rY FyLlxwYXIgUGFydCBEIHBv dFxaHHUdf7dajdhzVTvmbT mdf6uuFSakPU7kylGzfPcd JDk1PF0twaHnTXAhgO7rXN BeKkTrGVFyp86bWNAyfDlj syX1nFXvZUBogC1coLPkrC G2q2I8ONZnx0ZiQFScl8Js o2DnGEDhr9XeAYBmOOFkfE NwbGFzaWEuICBDbGluaWNh wDJza8QwNNremYlxgjYxVB NpqC7ivjDrBYmxDUA7 CPT Code(s) (test code k8wdzPSsFMDekNHcGFEwC2 = 3357) hfxmIrIGEvfQJtV0Wgprnm FHhyWB2jWX8ywMvsnOKahT RlDHWjRfGnw1cig736pZBz k4wiTOMNgorkmJc2sJpnU0 4gp3F6LohwY19btJSxQGL5 YHWkQTSumXSbNHAsIFP9ZT PlzTOyE3caFZNkVK5mshsm BMhvCQqeWHJqjXK1NLOwaZ TpH0OcZDDjKAqgIMBdjoz6 RjHqIz4qjTBwmGeiBLdeAZ JkXHBsYWluXGZzMjAgODgz COU3MSkyIDY8 CLINICAL HISTORY (test r8bfxHZyTZNhvHViWPOhX0 code = 3356) optwArKLVhpHLoL3Mehlio DAklFO2cWU7spUtwoTJxzK VxCTPwAaYms5dym280kJWl l4lmQRKMbalriUf5aDtpT4 7ii9E6HbhpC69ikALxGXY9 WXQdJOSmyYIbTSEnDAO2HP DhmVDoM4fxYPJuTT5vnvbq PDqqIPcdAAKbbBI8BMNfgT KfJ9EnXCHcJAqqJBIpotq8 ZiLpNi4iuLTtcCvaHYgvLK JkXHBsYWluXGZzMjAgTmF1 m8WgLQBmXFE8v44djNlzWm qlF8VtgE5togQqdLVaJZRz RBxgoIvgn5LpSGOhL71kdE lmK4U2xI4cSCBXYn7wvk6c dWISCEYxZaM8nGJoSTKrs9 4kcgmtCOD8 GROSS DESCRIPTION (test t0hzyLYjICCnpYBSQGDeWU code = [id number]) McTH2smSqdhYz5eTgdSLBh arX0tKOdNRuei5zbHIO0t0 refkAODujpUIHtVG2lYUtp KMWvBQ5tOsYdPCVzTtTmZA BhcGVydzEyMjQwXHBhcGVy gVD6LAZlNB0vvowrOUoxKJ rvRKJxfhV5FAHcgIXsF0Na XAJiIO6zmnzsQAY6HABFLn jsZm2lhEYwzGaeRxBfGwGl YXJzZXQwXGZuaWwgQXJpYW c9kT7OJjuvL95tg6B6Djj2 TUYdBXZmS2HpVB6sKADbfC MyZ28TNwbfVDJ4NGMDAdcm EnvsiFhxn2QbbQDmOBDkCL xcaWQgNTEwMDAgXFxkYiBP VlIgIiAxNDQwOTUxMCIgOT i4ASkdBoPYPPY0EIOvVwBx MFw0WEerNEvssDLvYKGbTQ VcGENnSRdhdkX1t2pwUKYc iVJaESI4FXats8mgUXmlEQ J4XOFeIvIfLZZdKN7OIzBj FUT1MNM6AJNxNpR1GOd0VD BPVlMgIiAgMzcyNjMwMTEi GGm1UWc9LQsOUaY8OpAaBJ S4GyfrVGK2MWywLMx8ZJBw XFxzcyAzIFxcZmwgXFxuY3 1ccGFyZCANClxwbGFpblxm fqRzJXTnLYT6z99tL8ctwT TiKK7BMHHzfwWjNZgwoHcl fL7hYyReBotqjUXnoDdqkQ ljTmVzdERvYzEgDQpcbHRy cGFyXGxpbjBccmluMCANCl xjZjFcZnMyMCBSZWNlaXZl JUBsxcUuh9TkLKbobpFsUS JlbGVkIHdpdGggdGhlIHBh pQcozqUsJ3Q8zvVuMX7aUL WsFTXtM7BqXUPgQ41wOZEc wY1yJEVzPT4cDCf8BBQzUN SrYpjec0VnlYTdeQHbMJSx NF40qYDhdFzrMNRenp79DU oyo0kmw32roEY2aOOycNSy TyCrE30ynjXkNLUlrulake vheH9sg5w9WZRyrv0xLTDn Km4aKxIyP17sXAxggNLiXV BsFYNivEZjkRJ9PJNrkY7g bB87yyDvwxLRER0ueCEdOK 0KXHBhciANClxzYTMwXGVw kFUBu7AnWZFNPvhfPlEzJc MyMiANClxlcGljTmVzdERv UeS5YUWirEOnIHZ9AI0ltI rcXEWqQXj2IPmhTCJhN7Ch L7VjBShwQpEkHZogSOVgAN HjPVclCLBcS3XDOBCjPUK8 EDc2HMOqRKp2VEe4JA0CPj BrYZGySsD8YwWbZpXbETi9 AIbzTI1HQKptRrN7KTY2Za B1LRx0EJUaVTGtYxYdYKUj JORcHEzqtJKfIV5bkAacOT FyZXPoXGN3JFYorQHBm8Gl QFIiIZlZMcHDtA2na5xmTD Mzqf9qeuWgVHggCYOlRLMx ilWTCoxhXQGhVT3LNZOjZD aoFIi8czEdZPGhKoZcTCZq F28wt1EGs6NqBK5JURs7eu PxfweayG1kQUOqjqGvg9Pe MFxlcGljWHNiMzAgDQpcY2 VaYBSdKlHlSpGjCTa3FLUn oC2dYn8yzTEiyU3keRDbTU nkULN7tIAmOJRtODHoMEHg WB79MUmTYWBmxrZkIEyksM VkaWNhbCByZWNvcmQgbnVt YmVyIGFuZCBcdTgyMjAgXC n7T9Gcnm9cggLdZUdcLOZe LMQgn2JxrTJwKBTpXRXfpA MjTPgovCfrmgFat9D1OURt c5N7WBTkpaRszEKueYRzpz NyF5gjAfUukqKdpXwfHAOm d94aVO7jJVXxPSDknIppk3 ouE3ogLDMgVJC4Ti8shEPm MPMshzH3j3YdAQaoGUUhOv oxUCToEJhng0HdURXdzRPI a6ZnMM5HVDYacqFAJcdrLX DzIRAliLAVz7GwWHEWCyqi ZjBcZnMyMiANClxlcGljTm MwoIBwVqN0QFGxfFHuTRD8 TY2wvPzgIZOqNHi5UPwuDM JgY1VnP7CxJUqpRaOfRPal VBOuHHAvOZujKWYfY7IAWE OiIUC4VIh3TTGoJLk0NYj5 TA1OPiZyKPDnFuE0JvKqLs LwNNo5EEubHK0GYXjxQiJ8 ISV0LMN8BBv7KOKzCQNqYt HoESZjUZIgMOdiyRMiVK1u nWqySKAhBPMaFQS9BJXajT NUy2CxGILzWJgDIoJiv2tu blxwYXIgDQpccGFyZCANCl xwbGFpblxsdHJjaFxmczIy MSApmDHMFKD2BS5lBTNSJt brzPPwEKWdiDwjDBlytL3g EHWzGeQnQEQiT6ckHxHvHE 2GPAYaAIqyxiJfMNXeD2Be tjPoNJpbPFGhno7qxPfxOC jeZxLcDIAwu1q3xRP5fMZr lZN1uVFuuTaaSbAeXD1bwW RrYM8tHSjkGRbtyiYcl8Jb NV01aGEjxdHvjuQkKSO0Zd MrITpvPJRye8tiuqBxBQOg DB90hGAqpEonSULark41MY fri5kwl48zxQJ6eGVwrPEz RvLkK86qlmTsAEUqzciusd rluC1tx7f6ZEDpzj4iZDOy VL5zDiOuO83fBEaykWYxJO FyTOOavZVcwLZ1ZAJheY1g pG39sqFdmeGZPV2ztDNfCT 0KXHNiMFxlcGljWHNiMCAN DnlfSDSjIJvaw9QxASwhlA msYVLmXnBcREmiZ0TmDEUy JxNqKKuvAOGlZ17lu7JEo9 Tyb4bpfMtcy3CasZNwPY0z mNVtNX0Mz6weCLQuhDWlMR J8VMubu4bpUJlgZNM5TBYf QbQsQIUzRU4EWiUhUOH3BM M7TPHgKvT9SSl2ETYSTfEz MsOfHpxiWzBwIMEgHOa9SX e6TFtATdT3ZlNxCUW5CaKe NWS7MWwbSUj7LQZpLDdoxv JmXMcmUijuONwzP15tiYIc ZFxzYjEwNVxlcGljWHNiMT E2UL4NIP1oMW6fuDRiNOUm iZ0bWO8uQWYuzjG0XIIpBV xwYXIgDQpccGFyZCANClxw bGFpblxsdHJjaFxmczIyXG VkmWLLHXI7IM7cHXEGAlda jXGnYPHetAxyZQxdhA7dMA QuGsJvHIYiY2fsMvWdSV1Q TFJoZDqoxqUnLKPiD6Mjhi JiKKouSEKrpc0hgWemISal AdCpXBQto6f2zLI0dMHsoZ R4nRNbnHvcJeFkDE5wxRLo FX2mMWbgUEhmjkNog5QfVS 30jWXqmqDublShCxGxFM2y smOiz7EuA96gw92uhU2zgH YyMLHaFGIkOQFloi51NTqy i2uodA2hmMLzkKCzSaRaB5 1uiyDuGDGkyyqnzpbzsQ0y f1v2VYLhxx9yQDUhXi8cJf NfN70vVDmrfVWeWWFcJVFc rZJvjMA6VMGywV7oqG59wx KqivMYPZ6pvQFcEZ6VIGJv MFxlcGljWHNiMCANClxwYX QcJRtdd0PmGFrwoQxgMVFc CgUiCQsrP1VnDMLcPcRcNQ J7avkqWLBkhaliTBncQWTe O62kc2TSy5Pjt9hzuNnsx3 OhnKZwVW98DQJkeEAsHKY2 CY0mbDgcQRHiMWzgrDZuGD ANCn0= MICROSCOPIC DESCRIPTION u2djgGBkTDFjgCBlNGNjS7 (test code = 3371) xnuaSrDSGklWSrW8Yripht IYwbCJ1mAJ6rpUfruPLxbK OfKOXsZpHcz1aod977jEWj y7udEQNKacnrmLp5sNpfK7 7cm8Y9BkudG51pfIGcVQS8 XOUhIRVyqKYdECOxQRF6FN VnwCAzO5uqYWUoEX5wwvxb XTwcCAamYZHpsHT8AESwmV VqB6YwTNXuODdzZUHjgvr1 NhPkOk8ddMMcqJrhQNvjAS JkXHBsYWluXGZzMjAgUGVy Ef4zsIYpLBSrhv0= Gross assessment was [facility] performed at ([facility], = 2777) Department of Pathology, [address] [place] [phone], Technical component was [facility] performed at ([facility], = 2778) Department of Pathology, [address] [place] [phone], Professional component [facility] was performed at ([facility], code = 2779) Department of Pathology, [address] [place] [phone], [id number] 11:11:00 Test Item Value Reference Range Interpretation Comments Case Report (test code Surgical Pathology = 104) Report Case: [id number] Authorizing Provider: Hugo Hathaway MD Collected: 12/27/2022 01:09 PM Ordering Location: [facility] OT ENDOSCOPY Received: 12/28/2022 09:10 AM SERVICES Pathologist: Cherelle Trinh MD Specimens: A) - Stomach, stomach bx's r/o inflammation B) - Biopsy, Terminal Ileum, terminal ileum bx's r/o inflammation C) - colon, colon bx's r/o inflammation D) - Polyp, Colon - Transverse DIAGNOSIS (test code = [id number] 3220) FuZzEwMzNcZnRuYmpcdWMx IHtccnRmMVxlcGljMTAyMD lvOF6ooOankYd6gZaaEGFk aeX5xQQcKRjqo2udJNS7r7 aktuysXHUsWVnsRm7vhWNw yVbyTyFaVLYtWVk9vJ01KY FxoC5xmLNgRQs1CISanEGc ksQbNhLlOZCgyOJwwVV6MC DvRA8nvxzhHJvpZWxdZASo dfG8XPJjpIIfG2IpJUWxZN 9nqnumAEL3ZKpcPPLnPDV5 FzDnLVLlm1Xnjaq0VwYdlE FyZFxwbGFpblxmczIwIEEg O9QKSOHYHWacJhHPNH3DDO XXR2ZVSKoaEGKwCHuux3Ir eBJnRT12iqHtEWE7jCRhsN Abb0FfYDncnClkxeDgP1Ae ziWjG7ComNLxkJN3lEroc7 c8tCHvv1BqqUZhel4wzE8t DZKobwYdK0ZkyDPaNmIwnF dxsWemKBY5aYVhfIFrf6Ov IHdpdGggbWlsZCByZWFjdG c6YCYfkHCeD7KwYMQyseVJ NYyccBc1GEDgx5BnvL90PN H7rJ6pxXOpJLGrrCadp3ng AQStvUVptAZhoHWbi6VjMY 5apIldu4OsUInln7Kff0Ry WU4nl44eELWuwfmpAWLnIn HHKQAHPU0ICJSNTMCRRSld FlGVZV1HKAKWH3SDDSmxBL RtYZWtXS41RTTuFVwxPBUf a3PdFL07S18kHYB0qTAzNY HmGCMfbiKgXOF1vGogc2Wu QPXqP8iokAGpdBRiFWAqla Qfir4ja5vzdnrjqBAlsjBf pOrjyF0bBFYry8hnJ5xuKZ knJ9cugupfWSVtyzfrOPGr BkEGF5kMNtkeTqRLFK0TRA OYH0TJUDomQRLlFQAczU6w rLLgsETpv1CqMXknyJywkS bhYVJyh52aiCWizOYeUzRf wZCkdoagWBovDeiobP8ihN yoehJopwM1jPZddDVluH1k TJYvj8QzwHMevDOvIF6iND Fpk2QlvbVrYVVyuWW3ITKa T3qajNDofUHtJZdqQHWavT FyIEQgVFJBTlNWRVJTRSBD B7zZQoNIQ4wXRWfhHT1FYP XHA7EXQElzwTNpTW5DeNB4 fKWpQMHoDR5smYLseGFtGJ 3OGAOoTPbaWD54JU1pAKYq cmVtYXJrYWJsZSBzbWFsbC Shs0bimADwtNHgz3RiyLYd yHqcvvOdSObby4RwXQjsMN LfCE1gqMqvNJOrZW3rNEDz G1deyT9mmrt6NkFmJTVbUv N8PTTylmQ0Cej8GNAxHQsh h9thd7IvDRMjOMl6vIwyWm WyFZLlc2lzqeCeFeEtWBVu XXWxEHPioCVcH699w9osh4 gylaKofKV6VTYlWAL0DDyo ewLeubG0GAotmSUsKjR9LM tccmVkMFxncmVlbjBcYmx1 ETNlV173LWZ2dVcvh8yjJS L3LKOqCZIsVqJaVl2jqSUr A347GWUwVIGCJQDwrGw1FW LyxvVmchBvoDXRh681O251 m5ooXCKqlzUluHaQqezrc5 wuS540LXHzcVEynuKjWwEw KQSqsAInlNK0WSVgRL0uve ptVNnfRWsiTGGgdmY2PVBe oNFgZ6AiDLUrSR7pcknwQP P9QQtjCQFzOKF5FqXhMUFs x0Vhujp7JrUmql1rls97BP Z4v4KgnHlcCHG3YQF6JxFv Wq7foWLrIKLtMJ9iJdRefJ IgMAUxbp77sOovZGjzDQO2 IKSjpsXpv7Oji9txIkKswz UnK6qtQ0JsQZVxCMAwTQUy BkAzkuJla5Kys1GgxXGkdV x3p5puMTEhQPMhrKori4jd PHZ6YUNfoBKkP7smrW0rGY UqWD8opodbn7voYMfzBQjs XOCfxGC8vrN7RZPknMShI1 WldK6nOAIbLUmfQYLgofd6 PbOgXs8elWAtoHqmHRaeDt twYWdlXHBnbmNvbnRccGdu ZGVjXHBsYWluXHBsYWluXG YwXGZzMjRccWxcbGFuZzEw MzNcaGljaFxmMVxkYmNoXG RlEEfwM5xwDsTtHfNuOds8 DQTbqGPqKBZqPka2ETKjaE TyLHSSqIrbuW3tBMLkmFev kF3zmIR9IYTtxcAaaNHQvD 3gZTLEbL4kSrB0QOYlBuv6 CYZ1MkXjyUAqwY4= COMMENT (test code = q1avyXDgFXCmcPDgGIDhA6 8574) ckmuYtWIPoaQVgU5Rcwvsn ABezBU8hWQ7kfShhgPKgrU PiWGViWjVkm8dkb454jOVm x6jpVVFWdcvrhCz1qLilG1 2ma8P5EqgkR03lzPUzIDF7 QASqDVEllGMqGGKpCCG1RQ OoqHPcA5rvGJBoKZ7mcvng RXtkTWerIDLdnHS5ZPOnmP EaJ9XuTOXuUSffBLMhycv8 JzQlYv9qzIUdrPosXXcfON JkXHBsYWluXGZzMjAgcGFy xRKSPsTRoCCiY9nar34dSd OwhrLyFL2qNDCgc02xoY5f lYebUEibaRgaMJAbbg8gtt aeMQqtBQ3sdwWjPJPoZkfy IGNhbiBiZSByZWxhdGVkIH RjAANpaXgeabZtloGUvd9g jjfdBECpu8Vzf7Ycf5Bve2 LpAROgsFXrz6DjEVLgdHXr tHogvdFtnZjgzC8pvWUndQ tlIGRydWdzIGluZmVjdGlv ujQtssWtVFi1DSQ0tVP6rC FyLlxwYXIgUGFydCBEIHBv hJxcEPTek6ozxnkaSDoztS yyr1irEVyrMI6jvbFtxRts FZv5IA5zoaExQCStlV3mOD HyOzMjYYWro35hISHbzUfd mbZ9aGGjGGQxbL1nlFPxiV F4o1E1BFQxp7MjJSXur8Uy a9EgNJDtw8UuIWVxOKUrqE NwbGFzaWEuICBDbGluaWNh oEFly7NuUYtujMjqgqZzRK ZesO8cioNbVSoiBDO5 CPT Code(s) (test code s3tbnHMlXPAjtFXdKOBqT6 = 3355) dedcEtDPIkkGRhS2Mgptpd VMmbEW0nEZ0rgNevzXUghR GwUNCuLmIah7vaa274aUCj f3cwIKRChbbnjMi3dOjrV5 0mo2B4UwjkA92bgIMrFON5 KHWlNFYggLVeEPXqWQO4YM ZawOGhT3cmGNMlSM5ivlio AVehUFprMAPqmMH0HJKdnV QxA0RzXTGhVYopRWBehsz6 SnRnPy6yeDGckWlxSSszOM JkXHBsYWluXGZzMjAgODgz QAZ0AAyqKJP6 CLINICAL HISTORY (test x9oqzHAkODAkxOCsRCLpU7 code = 3355) pineIiUSQbnLCdW9Muxhgo NOjsER7mUM2hzWgewMGfgG BvRFGkAsRak8tma293fGUp l2qzTWLWsstfxIt8rJotC6 9bh0S4LwplZ26rgVAsZTU8 PBCkKYEajAFlLHMbEFN6AC ImzEOtP1kxDDEeNY6btdwf KFjdVXxgTQLwcKH0QCDpcS IzA1NnYOJqBNedDHVcxsn1 QgMcBs4clDHtjFcqKCjiCU JkXHBsYWluXGZzMjAgTmF1 s3LqAAClQMK6p08caRysZd ljV3OvbE5lfiQwrFIdUTMc MJgqvNmrv7YtFFGbS58csZ mxV9H7yC0zRYROWe2meg6y cYSFWMGiAdL3yIYiGRFhy4 8glrujYSD3 GROSS DESCRIPTION (test j9dquGPcQGImvCREWNHiJA code = [id number]) DvKN5suEwwwGd3dBmnOIId hnF2rXKsOZnqw7gcCAS5d1 pwhaSLOumnFLSnAC4rTMcy LVUuPG4aTjOeCVMcTmQbWU BhcGVydzEyMjQwXHBhcGVy vZQ4NHCgTK3opofnYSepIP uqFJSejyZ7CYVghOShX3Da SOBaPW3uilrbJVN9HQNDGu hfSq6maNZpaTuoYcCqInJf YXJzZXQwXGZuaWwgQXJpYW u6dA0YJugnT63bi0H8Pvu9 DRKrSIUdL3FoGT7xHGZdvR OyS87XMmevKNS4NVTOSihi VmxhwYfrn1ZuwHCyBXYmNB xcaWQgNTEwMDAgXFxkYiBP VlIgIiAxNDQwOTUxMCIgOT c8DXzfJlUCFQI4LFOzRzDu ANa5AQjaWMoigFVjTCReGC ViPCHyHUbsglK0h8sjSTGs hRCxFRR5GFfem1rrYMqqLE X4TDAoYdAqBTCyQV4FKuKi YZT1BCW5PEExUkN3KKj7EL BPVlMgIiAgMzcyNjMwMTEi NJi5EFi4EZhFXyB5VwFqTP G9DmhkSOY8CWtjKQe9QEOw XFxzcyAzIFxcZmwgXFxuY3 1ccGFyZCANClxwbGFpblxm wqFdIRLqPSB2f06gB9aogO LsSC1WMFRdcmRgNLyipVgp tC8iRsJqAzjyxSZbgTlrzT ljTmVzdERvYzEgDQpcbHRy cGFyXGxpbjBccmluMCANCl xjZjFcZnMyMCBSZWNlaXZl RORejcJuk4WnJUdtpqCoEW JlbGVkIHdpdGggdGhlIHBh bWrnjaVtJ0E6obMmVC7dZI SeBLEwA1WeJDOnU87tPGNl hD9fOERzMC2jKFj0SVLpIV EfZeimg8AyfDIqfYSeFHAg YM59oIWmfOhjKHQfzr12LQ gnd3tqu54ydBD6lRKmyOOm IsCaD80illSzAAErksynsl jkcS9ci6z1BTHzil7kDGKg Ic6oVtBdJ92oBRnvgJYdJP AePWRtoTEdyPP5EEAyuH0h nZ27pdQfkcCUYU9flXNsPJ 0KXHBhciANClxzYTMwXGVw zMYUf6QoIPPZTlxcErLsKk MyMiANClxlcGljTmVzdERv ZkW6QUYsaGKmMNC3SG9cvG zwYSYyGIf9KOjnQNIlT1Nl N4FtUNhdEdGfWImzNMZmVN GoWRknTDRuM1ECXTGeLGU5 ECb7RFGgYRm4LGp5NU8VCi GvJMTyPcI2RcDfBlQxIFl6 BDjxBG9TOJztGjR0CYA9Se R2GPi5MFXlUTStPlIdOAJn YCLnAYtxmTXoSZ9eqDcaQA MlTBZwIXQ6REAmlSOHa2Yf EJWuFTnXIrMUzP6ko3vdLE Jtqy4hyvToVGxbANXoXPQw poNHLnxdRIMeZQ2YLNQcWQ saMSq4ozBgZUDbFvTyUWSa R52wu6XIu4MjOT1YPLw4mz BiyusfgI6gRVQnxxPeb6Yb MFxlcGljWHNiMzAgDQpcY2 KtTOLyPiSaCuFnJLl3FYKh dT8mEi2zhZSadY1ckDTeFP iuEAB3qEUcLNRmQLNrHABp LD85GInZQLYfijOtOLzznR VkaWNhbCByZWNvcmQgbnVt YmVyIGFuZCBcdTgyMjAgXC l9Q1Zgjg5xiaJyFAvfOWBi PFHpv4TpjFPoTCSnNYKtkF DvGHuqgMkexwAbi0J3RXEb c9D0CUHrezZzwPDqhFOxku ErU0nlMpXteyKmiEjaDNBs t49fJE3yRQBrXAYprPhzx5 cfG2ezWCUcFCT1Sj2bwQRj XYVtdsT0u3FoSRzgYJJuSh ftIFMoAMcea9LuKYQbfYNV m5EkHV3KUKMkocRPDnxtVU OmUMBslMZQq3CaQEBJXmzt ZjBcZnMyMiANClxlcGljTm RfiRUrWcR3TYEakIUiOSV5 VS2inQxnBWEiBNw2MZxuLD SeE2DrA2OfXLsbZoJiZTst ORFcPVWwEZvySANmF5VNKM ApZYZ9HQc1LLFyDPm4LGa4 JF1NTyUcLOVrIhS9BdIgCp QuGUi0IGgcDR6UGDatPtH6 DNQ4DKC1BUn2EAKfRCEsUd WcRWVkZSNpHGfzeNBzSV5r fBssMWYrMKZySPU5UZNrbJ FGl2LjJTLyGCdZTgGwn6kk blxwYXIgDQpccGFyZCANCl xwbGFpblxsdHJjaFxmczIy EIGahLCGJWB0QV0jFRJWDw mnaXFuDEKbmJgfUKybgY0x VQVwBvYxTTPhO1ztGqAxXX 5XSCBkZHsajlCjEQZkR7Ga lmWoPBokUHWbpa3rcDqfVR xkBbKnQOBzd4p9tIZ6gSNu jGT8sBNiwFadIhLqCK3qwF YzSM0lPUiuVAgsiwQro5Cc MV90uGOvsyIlhlEhFYT9Ez ZdNGelZUCgi6kxbsCfGYIz XG97cUFxtStuIPKoah87IZ dkc4dap63isJA0pOCazBPc ObPbL45recPpAIXohmmysv ufvP4mt6s8IIFkyr5rUWBq EW2lQzRsH54hSXvofJDkDP JeYMQnvYIxhVA3EFPprK7g uI47wbUgqgZBOB4lkAQgBI 0KXHNiMFxlcGljWHNiMCAN XtalURTiEFokn5CbPNwviX kpBYIyEwLjSZgxM8IuFNHf PlIkXWuiTDYvS75vc6HIg0 Egm7dyrFfoc9YxgDMtQN3c wLCyVR2Hy6abMJYpkZZoUT I9CNycr5mjSLchIEJ9MAYf LnTuKNGmIE9HMsYaYGQ3BE F4RGZeKbA5ZUf2ZCJNXzHv KoAcLhioPzKiBUCxEDq4QJ i6XXwGBuN1UyFhHJO8TvHt SWO6KBbqMEn9ZXIxABeioc DcWInhYidrSAcnN20tsGKo ZFxzYjEwNVxlcGljWHNiMT K5LG9VGG4nUF4gcHHxMBGz vK6cQO5lSGPydaV3WXNpZM xwYXIgDQpccGFyZCANClxw bGFpblxsdHJjaFxmczIyXG AgcIJXYIN6GS3oDPKQOmao tOYnAXDplJguVWiapW4pDU AzFrUpLPCfQ7adHjLxTM8Z JEXnXPvgkhRyZARpJ2Xqes GxQYsyKHRcji5jbMgfAJmo PuTuQTSwe4g7eKG4zWCgoZ M6dNWlsPluOxTcAR3zjTKx AQ1cGUioXSfnqhHau0NoOD 88zDMxggKsfxLtKdHiHQ8p xkUgm1HsH20av58bzK9ibD IqHKUlCSJrQXYtrr65WTro w4jncK5gkLMlfEHgYhPfR9 9kmfTpMDIkwaswqrmmkQ6y s9f1IZBmjj4zJCHtWr1gGa CqI66dARrdsKFlIQFrZFSl xVVqgFI2XERblG2fcS72is KaluEGIN5huEYzMN2TEPXw MFxlcGljWHNiMCANClxwYX PlGJggd6EiPKukyKglVRLy TvIsTBufL6QcPEGnTjYyLS Q9epbmOIBdlszbFXpoMDAm G41hp4TOz1Qum2azrPpyq2 QwbBPwJM89VHUvxASfHNS4 QQ6enMvoHPFjWJxqhDAiLH ANCn0= MICROSCOPIC DESCRIPTION o9pjxWLuIDUyfKDcQKPaC4 (test code = 3371) pwuwFhKMLpmNHjF3Aulopp VDbpGZ6xZV4glTfvfGVyuQ QoPSRfEbVih0eyk459vKRt n2suBHGRiyhjiGy8iYaiI4 2fj3M2SiqbE88taQOrLNX9 WMItKAUxwQNbLPOmCPA1AR EssFNmU7zlPSIsXN9gftrc VWyhEWsjXUBeaYP8MNPunI FqH4CcVKYoPFmuJRGlccg4 OrLvGv5jkZTgfJyoNWimBE JkXHBsYWluXGZzMjAgUGVy Fo4oyBSxDREnyr5= Gross assessment was [facility] performed at ([facility]ly [facility], = 2777) Department of Pathology, [address] [place] [phone], Technical component was [facility] performed at ([facility], = 2778) Department of Pathology, [address] [place] [phone], Professional component [facility] was performed at ([facility], code = 2779) Department of Pathology, [address] [place] [phone], [facility] [id number] 11:11:00Surgical Pathology Report Case: [id number] Authorizing Provider: Hugo Hathaway MD Collected:12/27/2022 01:09 PM Ordering Location: [facility]TM ENDOSCOPY Received: 12/28/2022 09:10 AM SERVICES Pathologist: Cherelle Trinh MD Specimens: A) - Stomach, stomach bx's r/o inflammation B) - Biopsy, Terminal Ileum, terminal ileum bx's r/o inflammation C) - colon, colon bx's r/o inflammation D) - Polyp, Colon - Transverse A STOMACH, RANDOM BIOPSY-Gastric antral type mucosa with reactive gastropathy with focal erosion-Gastric oxyntic type mucosa with mild reactive changesNegative for intestinal metaplasia, dysplasia or H. pylori-like organismsB TERMINAL ILEUM, RANDOM BIOPSY-Scant small bowel mucosa with preserved villous architecture and no significant histopathological changeC COLON, RANDOM BIOPSY-Colonic mucosa with mild nonspecific chronic inflammation in the lamina propria- Preserved crypt architectureD TRANSVERSE COLON POLYP, POLYPECTOMY- Tubular adenoma-A fragment of unremarkable small bowel mucosa Signing Pathologist Direct Phone Line: [phone] signed by Cherelle Trinh MD on 12/29/2022 at 11:10 AMpart C: The chronic inflammation in the lamina propria is nonspecific can be related to patient's Crohn's disease or superimposed any other etiology like drugs infection and diverticular.Part D polyp showing dysplasia is more 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 Clinical correlation [id number] and vomiting, Crohn's disease with other complication, Abnormal CT of the abdomenA. StomachReceived in formalin labeled with the patient's name, medical record number and "stomach" are multiple witt-yellow soft tissue fragments ranging in size from 0.3-0.4 cm, which are submitted in toto in A1.B. Biopsy, Terminal IleumReceived in formalin labeled with the patient's name, medical record number and "terminal ileum biopsy" are 2 witt-yellow soft tissue fragments ranging in size from 0.2-0.4 cm, which are submitted in toto in B1.C. colonReceived in formalin labeled with the patient's name, medical record number and "colon" are multiple witt-yellow soft tissue fragments ranging in size from 0.1-0.4 cm, which are submittedin toto in C1.D. Polyp, Colon - TransverseReceived in formalin labeled with the patient's name, medical record number and "transverse colon polyp" are 2 witt-yellow polypoid fragments ranging in size from 0.2-0.6 cm, which are submitted in toto in D1.[facility], [facility] of [facility]ology, [address] [place] [address], [facility], [facility] of [facility]ology, [address] [place] [phone], [facility], Department of Pathology, [address] [place] [address], Ivbjxskavp w/Microscopic + Reflex to [id number] 14:19:32 Test Item Value Reference Range Interpretation Comments Color, UA (test Colorless code = 5778-6) Clarity, UA (test Clear code = 5767-9) Specific Franklin, 1.010 1.001-1.035 UA (test code = 5811-5) pH, UA (test code 7.5 5.0-8.0 = 5803-2) Protein, UA (test Negative Negative code = 91859-9) Glucose, UA (test Negative Negative code = 365) Ketones, UA (test Negative Negative code = 2514-8) Bilirubin, UA Negative Negative (test code = 35179-0) Blood, UA (test Negative Negative code = 21617-3) Nitrite, UA (test Negative Negative code = 5802-4) Leukocytes, UA Negative Negative (test code = 5799-2) Urobilinogen, UA 0.2 0.2-1.0 (test code = 90809-3) RBC, UA (test 2 See_Comment [Automated code = 93200-1) message] The system which generated this result transmitted reference range : /HPF. The refer ence range was not u sed to interpret th is result as normal/abnormal . WBC, UA (test See_Comment [Automated code = 5821-4) message] The system which generated this result transmitted reference range : /HPF. The refer ence range was not u sed to interpret th is result as normal/abnormal . Specimen Source (test code = 2795) BERTIN (test code = Inspector Filters ID - BERTIN) [auto]Inspector Filters ID - tech [facility]/Microscopic + Reflex to Culture 2022-10-22 14:19:32 Test Item Value Reference Range Interpretation Comments Color, UA (test Colorless code = 5778-6) Clarity, UA (test Clear code = 5767-9) Specific Franklin, 1.010 1.001-1.035 UA (test code = 5811-5) pH, UA (test code 7.5 5.0-8.0 = 5803-2) Protein, UA (test Negative Negative code = 97746-6) Glucose, UA (test Negative Negative code = 365) Ketones, UA (test Negative Negative code = 2514-8) Bilirubin, UA Negative Negative (test code = 92124-1) Blood, UA (test Negative Negative code = 31713-0) Nitrite, UA (test Negative Negative code = 5802-4) Leukocytes, UA Negative Negative (test code = 5799-2) Urobilinogen, UA 0.2 0.2-1.0 (test code = 48083-0) RBC, UA (test 2 See_Comment [Automated code = 01805-6) message] The system which generated this result transmitted reference range : /HPF. The refer ence range was not u sed to interpret th is result as normal/abnormal . WBC, UA (test See_Comment [Automated code = 5821-4) message] The system which generated this result transmitted reference range : /HPF. The refer ence range was not u sed to interpret th is result as normal/abnormal . Specimen Source (test code = 2795) BERTIN (test code = Inspector Filters ID - BERTIN) [auto]Inspector Filters ID - tech [facility]/Microscopic + Reflex to Culture 2022-10-22 14:19:32 Test Item Value Reference Range Interpretation Comments Color, UA (test Colorless code = 5778-6) Clarity, UA (test Clear code = 5767-9) Specific Franklin, 1.010 1.001-1.035 UA (test code = 5811-5) pH, UA (test code 7.5 5.0-8.0 = 5803-2) Protein, UA (test Negative Negative code = 15022-8) Glucose, UA (test Negative Negative code = 365) Ketones, UA (test Negative Negative code = 2514-8) Bilirubin, UA Negative Negative (test code = 33796-1) Blood, UA (test Negative Negative code = 76512-2) Nitrite, UA (test Negative Negative code = 5802-4) Leukocytes, UA Negative Negative (test code = 5799-2) Urobilinogen, UA 0.2 0.2-1.0 (test code = 19938-1) RBC, UA (test 2 See_Comment [Automated code = 31857-1) message] The system which generated this result transmitted reference range : /HPF. The refer ence range was not u sed to interpret th is result as normal/abnormal . WBC, UA (test See_Comment [Automated code = 5821-4) message] The system which generated this result transmitted reference range : /HPF. The refer ence range was not u sed to interpret th is result as normal/abnormal . Specimen Source (test code = 2795) BERTIN (test code = Inspector Filters ID - BERTIN) [auto]Inspector Filters ID - tech [facility] w/Microscopic + Reflex to Culture 2022-10-22 14:19:32 Test Item Value Reference Range Interpretation Comments Color, UA (test Colorless code = 5778-6) Clarity, UA (test Clear code = 5767-9) Specific Franklin, 1.010 1.001-1.035 UA (test code = 5811-5) pH, UA (test code 7.5 5.0-8.0 = 5803-2) Protein, UA (test Negative Negative code = 73862-7) Glucose, UA (test Negative Negative code = 365) Ketones, UA (test Negative Negative code = 2514-8) Bilirubin, UA Negative Negative (test code = 44987-6) Blood, UA (test Negative Negative code = 30611-0) Nitrite, UA (test Negative Negative code = 5802-4) Leukocytes, UA Negative Negative (test code = 5799-2) Urobilinogen, UA 0.2 0.2-1.0 (test code = 14717-2) RBC, UA (test 2 See_Comment [Automated code = 04626-8) message] The system which generated this result transmitted reference range : /HPF. The refer ence range was not u sed to interpret th is result as normal/abnormal . WBC, UA (test See_Comment [Automated code = 5821-4) message] The system which generated this result transmitted reference range : /HPF. The refer ence range was not u sed to interpret th is result as normal/abnormal . Specimen Source (test code = 2795) BERTIN (test code = Inspector Filters ID - BERTIN) [auto]Inspector Filters ID - tech [facility] W/ REFLEX URINE [id number] 14:19:32 Test Item Value Reference Range Interpretation Comments COLOR (BEAKER) (test code = 470) Colorless CLARITY (BEAKER) (test code = 469) Clear SPECIFIC GRAVITY UA (BEAKER) (test 1.010 1.001-1.035 code = 468) PH UA (BEAKER) (test code = 467) 7.5 5.0-8.0 PROTEIN UA (BEAKER) (test code = Negative Negative 464) GLUCOSE UA (BEAKER) (test code = Negative Negative 365) KETONES UA (BEAKER) (test code = Negative Negative 371) BILIRUBIN UA (BEAKER) (test code = Negative Negative 462) BLOOD UA (BEAKER) (test code = 461) Negative Negative NITRITE UA (BEAKER) (test code = Negative Negative 465) LEUKOCYTE ESTERASE UA (BEAKER) Negative Negative (test code = 466) UROBILINOGEN UA (BEAKER) (test code 0.2 0.2-1.0 = 463) RBC UA (BEAKER) (test code = 519) 2 /HPF WBC UA (BEAKER) (test code = 520) < /HPF SOURCE(BEAKER) (test code = 2795) Inspector Filters ID - [auto]Inspector Filters ID - techUS ABDOMEN [id number] 10:15:42 [facility] 1970 Sex: FAbdominal ultrasound dated 10/22/2022omment: Real-time transabdominal ultrasound of the right upperquadrantabdomen was performed.Liver is and measures 12.3 cm in length. The echogenicity of the liveris normal. No focal lesion is noted in the liver. Gallbladder is contracted. Gallstones are present. No biliary dilatationis seen. Common bile duct measures 6 mm in diameter. Main portal veinmeasures 11 mm in diameter.Pancreas is incompletely visualized.Right kidney measures 8.8 x 4.3 x 4.4 cm. Echogenicity ofthe rightkidney is normal.No ascites is present in the abdomen.Abdominal aorta is normal in caliber.IVC and Hepatic veins are patent.IMPRESSION:Impression: 1. Cholelithiasis without biliary dilatation.2. Somewhat atrophic right kidney.Electronically Signed By: Jose Montenegro10/22/2022 10:18 CDTWorkstation Name: [id number] abdomen [id number] 10:15:42Abdominal ultrasound dated 10/22/2022 Comment: Real-time transabdominal ultrasound of the right upperquadrant abdomen was performed. Liver is and measures 12.3 cm in length. The echogenicity of the liveris normal. No focal lesion is noted in the liver. Gallbladder is contracted. Gallstones are present. No biliary dilatationis seen. Common bile duct measures 6 mm in diameter. Main portal veinmeasures 11 mm in diameter. Pancreas is incompletely visualized. Right kidney measures 8.8 x 4.3 x 4.4 cm. Echogenicity of the rightkidney is normal. No ascites is present in the abdomen. Abdominal aorta is normal in caliber. IVC and Hepatic veins are patent.[facility] HospitalUS abdomen [id number] 10:15:42Abdominal ultrasound dated 10/22/2022 Comment: Real- time transabdominal ultrasound of the right upperquadrant abdomen was performed. Liver is and measures 12.3 cm in length. The echogenicity of the liveris normal. No focal lesion is noted in the liver. Gallbladder is contracted. Gallstones are present.No biliary dilatationis seen. Common bile duct measures 6 mm in diameter. Main portal veinmeasures 11 mm in diameter. Pancreas is incompletely visualized. Right kidney measures 8.8 x 4.3 x 4.4 cm. Echogenicity of the rightkidney is normal. No ascites is present in the abdomen. Abdominal aorta is normal in caliber. IVC and Hepatic veins are patent.[facility] HospitalLIPASE2023-08-20 05:11:38 Test Item Value Reference Range Interpretation Comments LIPASE (AKER) (test code = 749) 12 U/L 8-78 Inspector Filters ID Elba FRANKS WC-REACTIVE [id number] 05:11:38 Test Item Value Reference Range Interpretation Comments C-REACTIVE PROTEIN (BEAKER) (test 1.43 mg/dL 0.00-0.50 H code = 676) Inspector Filters ID - TINY OMPREHENSIVE METABOLIC [id number] 05:11:37 Test Item Value Reference Range Interpretation Comments TOTAL PROTEIN 6.3 gm/dL 6.0-8.3 (BEAKER) (test code = 770) ALBUMIN (AKER) 3.5 g/dL 3.5-5.0 (test code = 1145) ALKALINE 79 U/L 40-150 PHOSPHATASE (BEAKER) (test code = 346) BILIRUBIN TOTAL 0.4 mg/dL 0.2-1.2 (BEAKER) (test code = 377) SODIUM (BEAKER) 139 meq/L 136-145 (test code = 381) POTASSIUM (BEAKER) 3.5 meq/L 3.5-5.1 (test code = 379) CHLORIDE (BEAKER) 107 meq/L 98-107 (test code = 382) CO2 (BEAKER) (test 25 meq/L 22-29 code = 355) BLOOD UREA 10 mg/dL 7-21 NITROGEN (BEAKER) (test code = 354) CREATININE 0.70 mg/dL 0.57-1.25 (BEAKER) (test code = 358) GLUCOSE RANDOM 97 mg/dL 70-105 (BEAKER) (test code = 652) CALCIUM (BEAKER) 8.2 mg/dL 8.4-10.2 L (test code = 697) AST (SGOT) 31 U/L 5-34 (BEAKER) (test code = 353) ALT (SGPT) 41 U/L 6-55 (BEAKER) (test code = 347) EGFR (BEAKER) 105 Interpretati on of eGFR (test code = 1092) mL/min/1.[address] age Description sq m Result G1 Raquel l or high >=90 G2 Mildly decreased 60-89 G3a Mildl y to moderately 45-5 9 G3b Moderately to s everely 30-44 G4 Severl y decreased 15-29 G5 Kidney failure <15Reported eGF R is based on the CKD-EPI 2021 equation that d oes not use a race coefficientEsti mated GFR is not as accur ate as Creatinine Gabrielle lam in predicting glom erular filtration rate . Estimated GFR is not appl icable for dialysis patien ts Inspector Filters ID - TINY WCBC W/PLT COUNT & AUTO [id number] 04:59:16 Test Item Value Reference Range Interpretation Comments WHITE BLOOD CELL COUNT (BEAKER) 13.3 K/ L 3.5-10.5 H (test code = 775) RED BLOOD CELL COUNT (BEAKER) 3.87 M/ L 3.93-5.22 L (test code = 761) HEMOGLOBIN (BEAKER) (test code = 11.4 GM/DL 11.2-15.7 410) HEMATOCRIT (BEAKER) (test code = 34.8 % 34.1-44.9 411) MEAN CORPUSCULAR VOLUME (BEAKER) 90 fL 79-95 (test code = 753) MEAN CORPUSCULAR HEMOGLOBIN 29.5 pg 25.6-32.2 (BEAKER) (test code = 751) MEAN CORPUSCULAR HEMOGLOBIN CONC 32.8 GM/DL 32.2-35.5 (BEAKER) (test code = 752) RED CELL DISTRIBUTION WIDTH 12.6 % 11.7-14.4 (BEAKER) (test code = 412) PLATELET COUNT (BEAKER) (test 328 K/CU MM 150-450 code = 756) MEAN PLATELET VOLUME (BEAKER) 10.0 fL 9.4-12.3 (test code = 754) NUCLEATED RED BLOOD CELLS 0 /100 WBC 0-0 (BEAKER) (test code = 413) NEUTROPHILS RELATIVE PERCENT 71 % (BEAKER) (test code = 429) LYMPHOCYTES RELATIVE PERCENT 20 % (BEAKER) (test code = 430) MONOCYTES RELATIVE PERCENT 7 % (BEAKER) (test code = 431) EOSINOPHILS RELATIVE PERCENT 2 % (BEAKER) (test code = 432) BASOPHILS RELATIVE PERCENT 0 % (BEAKER) (test code = 437) NEUTROPHILS ABSOLUTE COUNT 9.49 K/ L 1.56-6.13 H (BEAKER) (test code = 670) LYMPHOCYTES ABSOLUTE COUNT 2.60 K/ L 1.18-3.74 (BEAKER) (test code = 414) MONOCYTES ABSOLUTE COUNT (BEAKER) 0.90 K/ L 0.24-0.36 H (test code = 415) EOSINOPHILS ABSOLUTE COUNT 0.23 K/ L 0.04-0.36 (BEAKER) (test code = 416) BASOPHILS ABSOLUTE COUNT (BEAKER) 0.05 K/ L 0.01-0.08 (test code = 417) IMMATURE GRANULOCYTES-RELATIVE 0.40 % 0.00-1.00 PERCENT (BEAKER) (test code = 2801) XR ABDOMEN/KUB 1 VIEW [id number] 23:21:33 [facility] 1970 Sex: FEXAM: XR Abdomen, 1 ViewCLINICAL INDICATION: nausea vomiting, abdominal distentionTECHNIQUE: Frontal supineview of the abdomen/pelvis.COMPARISON: No relevant prior studies available.FINDINGS:Gastrointestinaltract: There is a normal amount of stool in the rightcolon measuring up to 4.2 cm which is within normal limits. No dilatedbowel loops identified.Bones/joints: Unremarkable.Tubes, lines and devices: There is an electronic stimulating deviceimplanted over the right flank.IMPRESSION:There is a normal amount of stool in the right colon measuring up to 4.2cm which is within normal limits. No dilated bowel loops identified.Electronically Signed By: Marcellus Jrarett10/21/2022 23:23 CDTWorkstation Name: [id number] abdomen / KUB 1 view [id number] 23:21:33EXAM: XR Abdomen, 1 View CLINICAL INDICATION: nausea vomiting, abdominal distention TECHNIQUE: Frontal supine view of the abdomen/pelvis. COMPARISON: No relevant prior studies available. FINDINGS:Gastrointestinal tract: There is a normal amount of stool in the rightcolon measuring up to 4.2 cm which is within normal limits. No dilatedbowel loops identified.Bones/joints: Unremarkable.Tubes, lines and devices: There is an electronic stimulating deviceimplanted over the right flank.[facility] HospitalXR [facility] / KUB 1 view [id number] 23:21:33EXAM: XR Abdomen, 1 View CLINICAL INDICATION: nausea vomiting, abdominal distention TECHNIQUE: Frontal supine view of the abdomen/pelvis. COMPARISON: No relevant prior studies available. FINDINGS:Gastro intestinal tract: There is a normal amount of stool in the rightcolon measuring up to 4.2 cm which is within normal limits. No dilatedbowel loops identified.Bones/joints: Unremarkable.Tubes, lines and devices: There is an electronic stimulating deviceimplanted over the right flank.[facility]
[2023-01-29] MEDS ORDERED: DIPHENHYDRAMINE 50 MG/ML VIAL ONE (18:56)
[2023-01-29] MEDS ORDERED: KETOROLAC 30 MG/ML INJ ONE (18:57)
[2023-01-29] MEDS ORDERED: LORAZEPAM 1 MG TABLET ONE (18:57)
[2023-01-29] MEDS ORDERED: NA CHLORIDE 0.9% 1,000 ML ONE (18:57)
[2023-01-29 19:16] LABS: SARS-CoV-2 Antigen Rapid Res Positive (Negative)
[2023-01-29 19:34] LABS: Absolute Lymphocytes (CBC) 0.4 K/uL (0.7-4.9); Hematocrit 36.7 % (36.0-45.0); Lymphocytes % 4.4 % (15.3-44.8); MCV 87.2 fL (80-100); MPV 7.9 fL (7.6-11.3); Platelets 321 thou/uL (152-406); RBC Red Blood Cell Count 4.21 M/uL (3.86-4.86)
[2023-01-29 19:53] LABS: Albumin 3.6 g/dL (3.4-5.0); Bilirubin Total 0.3 mg/dL (0.2-1.0); Potassium 3.4 mEq/L (3.5-5.1); Protein, Total 7.7 g/dL (6.4-8.2)
[2023-01-29] MEDS ORDERED: FENTANYL CITR 100 MCG/2 ML ONE (20:48)
[2023-01-29 20:56] LABS: Blood Morphology Comment NOT SEEN (NOT SEEN); Platelet Estimate ADEQ; White Blood Cell Scan OK (OK)
--- NOTE | 2023-01-29 21:16 | RAD REPORT ---
EXAM DESCRIPTION: US - Abdomen Exam Limited - 01/29/2023 8:19 pm CLINICAL HISTORY: ABD PAIN COMPARISON: Abdomen Pelvis W Contrast dated 10/21/2022 TECHNIQUE: Sonographic grayscale and color flow images of the right upper abdominal quadrant were o btained. FINDINGS: The gallbladder is decompressed limiting evaluation. No appreciable pericholecystic fluid or gallstones. The common bile duct is normal measuring 6 mm. The liver demonstrates no findings of intrahepatic biliary dilatation. IMPRESSION: Upper limit of normal common bile duct, 6 millimeter. Please correlate with laboratory o r profile. Contracted gallbladder limiting evaluation.
--- NOTE | 2023-01-29 21:27 | EDPHYS ---
Physician Documentation [facility] Name: Deb Mann Age: 52 yrs Sex: Female : 1970 Arrival Date: 01/29/2023 Time: 18:17 Bed 18 Private MD: ED Physician Cosmo Carcamo HPI: 01/29 19:01 This 52 yrs old Female presents to ER via Ambulatory with complaints of Vomiting, snw Headache. 19:01 The patient presents to the emergency department with nausea, vomiting. Onset: The snw symptoms/episode began/occurred acutely. Possible causes: sick contacts, by family, . Associated signs and symptoms: Pertinent positives: fever, nausea, vomiting, headache. Severity of symptoms: At their worst the symptoms were moderate in the emergency department the symptoms are unchanged. The patient has not experienced similar symptoms in the past. The patient has not recently seen a physician. pt states headache started 1-2 hours ago. S.O. dx with CoVId. Pt began having fever, bodyaches today, then started having N/V and c/o severe headache.. Historical: - Allergies: 18:23 Remicade; mb9 - Home Meds: 18:23 None [Active]; mb9 - PMHx: 18:23 bowel obstruction; Crohn's; UTI; mb9 - PSHx: 18:23 colon resection; mb9 - Immunization history:: Adult Immunizations up to date. - Social history:: Smoking status: Patient denies any tobacco usage or history of. ROS: 19:00 Eyes: Negative for injury, pain, redness, and discharge, ENT: Negative for injury, snw pain, and discharge, Neck: Negative for injury, pain, and swelling, Cardiovascular: Negative for chest pain, palpitations, and edema, Respiratory: Negative for shortness of breath, cough, wheezing, and pleuritic chest pain, 19:00 Back: Negative for injury and pain, : Negative for injury, bleeding, discharge, and swelling, MS/Extremity: Negative for injury and deformity, Skin: Negative for injury, rash, and discoloration, Neuro: Negative for headache, weakness, numbness, tingling, and seizure, Psych: Negative for depression, anxiety, suicide ideation, homicidal ideation, and hallucinations, 19:00 Constitutional: Positive for body aches, chills, fatigue, fever, 19:00 Abdomen/GI: Positive for nausea and vomiting, Exam: 18:56 Constitutional: This is a well developed, well nourished patient who is awake, alert, snw and agitated. Head/Face: Normocephalic, atraumatic. 18:56 Eyes: Pupils equal round and reactive to light, extra-ocular motions intact. Lids and lashes normal. Conjunctiva and sclera are non-icteric and not injected. Cornea within normal limits. Periorbital areas with no swelling, redness, or edema. ENT: Nares patent. No nasal discharge, no septal abnormalities noted. Tympanic membranes are normal and external auditory canals are clear. Oropharynx with no redness, swelling, or masses, exudates, or evidence of obstruction, uvula midline. Mucous membranes moist. Neck: Trachea midline, no thyromegaly or masses palpated, and no cervical lymphadenopathy. Supple, full range of motion without nuchal rigidity, or vertebral point tenderness. No Meningismus. Chest/axilla: Normal chest wall appearance and motion. Nontender with no deformity. No lesions are appreciated. 18:56 Respiratory: Lungs have equal breath sounds bilaterally, clear to auscultation and percussion. No rales, rhonchi or wheezes noted. No increased work of breathing, no retractions or nasal flaring. Abdomen/GI: Soft, non-tender, with normal bowel sounds. No distension or tympany. No guarding or rebound. No evidence of tenderness throughout. Back: No spinal tenderness. No costovertebral tenderness. Full range of motion. Skin: Warm, dry with normal turgor. Normal color with no rashes, no lesions, and no evidence of cellulitis. MS/ Extremity: Pulses equal, no cyanosis. Neurovascular intact. Full, normal range of motion. Neuro: Awake and alert, GCS 15, oriented to person, place, time, and situation. Cranial nerves II-XII grossly intact. Motor strength 5/5 in all extremities. Sensory grossly intact. Cerebellar exam normal. Normal gait. 18:56 Constitutional: The patient appears alert, awake, anxious, restless, uncomfortable, unkempt, 18:56 Cardiovascular: Rate: tachycardic, Rhythm: regular, Heart sounds: normal, 18:56 Psych: Behavior/mood is anxious, Affect is animated, Oriented to person, place, time, Vital Signs: 18:20 BP 142 / 84; Pulse 110; Resp 18; Temp 98.4; Pulse Ox 100% on R/A; Weight 63.96 kg; mb9 Height 5 ft. 5 in. ; Pain 10/10; 20:36 BP 139 / 79; Pulse 104; Resp 18; Temp 99.1(TE); Pulse Ox 96% ; Pain 7/10; nj1 22:08 BP 116 / 77; Pulse 101; Resp 16; Pulse Ox 98% on R/A; jb4 18:20 Body Mass Index 23.46 (63.96 kg, 165.1 cm) mb9 18:20 Pain Scale: Adult mb9 20:36 Pain Scale: Adult nj1 MDM: 18:27 Patient medically screened. snw 19:01 Differential diagnosis: dx with CoVid today. Data reviewed: vital signs, nurses snw notes. I considered the following discharge prescriptions or medication management in the emergency department Medications were administered in the Emergency Department. See MAR. Counseling: I had a detailed discussion with the patient and/or guardian regarding the historical points, exam findings, and any diagnostic results supporting the discharge/admit diagnosis, the presence of at least one elevated blood pressure reading (>120/80) during this emergency department visit. 20:53 Response to treatment: the patient's symptoms have mildly improved after treatment. snw Special discussion: Based on the history and exam findings, there is no indication for further emergent testing or inpatient evaluation. I discussed with the patient/guardian the need to see the primary care provider for further evaluation of the symptoms. 20:54 Transition of care: After a detail discussion of the patient's case, care is snw transferred to Cosmo Carcamo MD. 01/29 18:26 Order name: Flu; Complete Time: 19:31 snw 01/29 18:26 Order name: SARS RAPID; Complete Time: 19:18 snw 01/29 18:31 Order name: CBC with Diff; Complete Time: 21:02 snw 01/29 18:31 Order name: CMP; Complete Time: 19:58 snw 01/29 20:57 Order name: CBC Smear Scan; Complete Time: 21:02 EDMS 01/29 19:59 Order name: US Abdomen Limited; Complete Time: 21:21 snw Administered Medications: 18:50 Drug: LORazepam PO 1 mg PO once; please give sublingually Route: PO; nj1 19:13 Drug: NS 0.9% IV 1000 ml IV at 1 bolus Per protocol; 1000 mL bolus Route: IV; Rate: 1 nj1 bolus; Site: Port-a-cath; 19:13 Drug: diphenhydrAMINE IVP 12.5 mg IVP once Route: IVP; Site: Port-a-cath; nj1 19:14 Drug: Ketorolac IVP 15 mg IVP once Route: IVP; Site: Port-a-cath; nj1 20:36 Drug: fentaNYL (PF) IVP 25 mcg IVP once Route: IVP; Site: Port-a-cath; nj1 22:01 Not Given (Other Intervention Used): heparin [id number] units IVP once jb4 22:07 Drug: HEParin Flush IVP 500 units IVP once; for Port-a-cath packing Route: IVP; Site: [facility] Port-a-cath; Disposition: 21:26 Co-signature as Attending Physician, Cosmo Carcamo MD I reviewed the patient's care rt provided by Advanced Practice Provider \T\ agree w/ the diagnosis \T\ care plan. I personally saw the pt \T\ performed a substantive portion of the visit, incldng all aspects of the (History/Exam/Medical Decision Making). I reviewed the patient's labs, ultrasound imaging. Patient with elevated transaminases, was informed of this. Ultrasound shows no acute findings, do not believe she requires further work-up at this time, she instructed to follow-up with a shirt presser as an outpatient setting further evaluation of transaminases.. Disposition Summary: 01/29/23 21:26 Discharge Ordered Notes: Location: Home rt Condition: Stable rt Diagnosis - SARS-associated coronavirus as the cause of diseases classified elsewhere rt - Headache rt Followup: snw - With: Emergency Department - When: As needed - Reason: Worsening of condition Followup: snw - With: Private Physician - When: 2 - 3 days - Reason: Recheck today's complaints, Continuance of care, Re-evaluation by your physician Discharge Instructions: - Discharge Summary Sheet snw - Migraine Headache snw - Aspirin and Your Heart snw - Rehydration, Adult snw - COVID-19 snw - 10 Things You Can Do to Manage Your COVID-19 Symptoms at Home - [facility] (09/17/2020) snw - COVID-19: Quarantine and Isolation - [facility] (06/01/2021) snw Forms: - Work release form snw - Medication Reconciliation Form rt - Thank You Letter rt - Antibiotic Education rt - Prescription Opioid Use rt - Patient Portal Instructions rt - Leadership Thank You Letter rt Prescriptions: - Zyrtec 10 mg Oral Tablet - take 1 tablet ORAL route once daily As needed; 20 tablet; Refills: 0, Product snw Selection Permitted - orphenadrine citrate 100 mg Oral Tablet Sustained Release - take 1 tablet ORAL route 2 times per day As needed; 20 tablet; Refills: 0, snw Product Selection Permitted - Pepcid 20 mg Oral Tablet - take 1 tablet ORAL route once daily; 20 tablet; Refills: 0, Product Selection snw Permitted - promethazine 25 mg Oral Tablet - take 1 tablet ORAL route every 6 hours As needed; 20 tablet; Refills: 0, snw Product Selection Permitted Signatures: Dispatcher [employer] EDFadia Morales, CENTRAL OFFICE TROUBLE SHOOTER-C CENTRAL OFFICE TROUBLE SHOOTER-Csnw Jose Mayer, RN RN jb4 Julieth Germain RN RN mb9 Cosmo Carcamo MD MD rt Raquel Monique, RN RN nj1
--- NOTE | 2023-01-29 21:27 | ER ---
Nurse's Notes [facility] Name: Deb Mann Age: 52 yrs Sex: Female : 1970 Arrival Date: 01/29/2023 Time: 18:17 Bed 18 Private MD: Diagnosis: SARS-associated coronavirus as the cause of diseases classified elsewhere;Headache Presentation: 01/29 18:20 Chief complaint: Patient states: "I've had body aches, headache, vomiting, and fever mb9 since today. I feel like I have a migraine and it hurts really bad. Nothing is helping. My just got diagnosed with COVID". Coronavirus screen: Vaccine status: Patient reports being unvaccinated. Ebola Screen: No symptoms or risks identified at this time. Initial Sepsis Screen: Does the patient meet any 2 criteria? No. Patient's initial sepsis screen is negative. Does the patient have a suspected source of infection? No. Patient's initial sepsis screen is negative. Risk Assessment: Do you want to hurt yourself or someone else? Patient reports no desire to harm self or others. Onset of symptoms was January 29, 2023. 18:20 Method Of Arrival: Ambulatory 9 18:20 Acuity: VANNESA 3 mb9 Triage Assessment: 18:23 General: Appears uncomfortable, Behavior is cooperative. Pain: Complains of pain in mb9 head Pain does not radiate. Pain currently is 10 out of 10 on a pain scale. Quality of pain is described as pressure, pulsating, Pain began suddenly. EENT: No signs and/or symptoms were reported regarding the EENT system. Neuro: Crawley Agitation-Sedation Scale (RASS): 0 - Alert and Calm Level of Consciousness is awake, alert, obeys commands, Oriented to person, place, time, situation, Appropriate for age Reports headache in entire. Cardiovascular: Patient's skin is warm and dry. Respiratory: Airway is patent Respiratory effort is even, unlabored, Respiratory pattern is regular, symmetrical. GI: Reports nausea, vomiting. : No signs and/or symptoms were reported regarding the genitourinary system. Derm: Skin is pink, warm \\T\\ dry. Musculoskeletal: Range of motion: intact in all extremities. Historical: - Allergies: 18:23 Remicade; mb9 - Home Meds: 18:23 None [Active]; mb9 - PMHx: 18:23 bowel obstruction; Crohn's; UTI; mb9 - PSHx: 18:23 colon resection; mb9 - Immunization history:: Adult Immunizations up to date. - Social history:: Smoking status: Patient denies any tobacco usage or history of. Screenin:30 [facility] ED Fall Risk Assessment (Adult) Score/Fall Risk Level 0 - 2 = Low Risk nj1 Oriented to surroundings, Hourly rounding (assess needs \\T\\ fall precautionary measures) done, Used ambulatory aids as needed (educated on \\T\\ assisted with). Abuse screen: Denies threats or abuse. Denies injuries from another. Nutritional screening: No deficits noted. Tuberculosis screening: No symptoms or risk factors identified. Assessment: 18:50 General: Appears uncomfortable, Behavior is cooperative, crying. nj1 18:50 Pain: Complains of pain in Head Pain currently is 9 out of 10 on a pain scale. Quality nj1 of pain is described as aching. Neuro: Level of Consciousness is awake, alert, obeys commands, Oriented to person, place, time, situation. Cardiovascular: Patient's skin is warm and dry. Respiratory: Airway is patent Respiratory effort is even, unlabored. 22:08 Reassessment: Patient appears in no apparent distress at this time. Patient and/or jb4 family updated on plan of care and expected duration. Pain level reassessed. Patient is alert, oriented x 3, equal unlabored respirations, skin warm/dry/pink. Vital Signs: 18:20 BP 142 / 84; Pulse 110; Resp 18; Temp 98.4; Pulse Ox 100% on R/A; Weight 63.96 kg; mb9 Height 5 ft. 5 in. ; Pain 10/10; 20:36 BP 139 / 79; Pulse 104; Resp 18; Temp 99.1(TE); Pulse Ox 96% ; Pain 7/10; nj1 22:08 BP 116 / 77; Pulse 101; Resp 16; Pulse Ox 98% on R/A; jb4 18:20 Body Mass Index 23.46 (63.96 kg, 165.1 cm) mb9 18:20 Pain Scale: Adult mb9 20:36 Pain Scale: Adult nj1 ED Course: 18:19 Patient arrived in ED. mr 18:23 Triage completed. mb9 18:24 Fad[facility] Goldstein [facility]C [facility] snw 18:24 Cosmo Caracmo MD is Attending Physician. snw 18:24 Arm band placed on. mb9 18:29 Raquel Monique, JUNIE is Primary Nurse. nj1 19:13 Accessed Port-a-Cath. using accessed w/ # 20 Mitchell needle, ,sterile technique, per [address] protocol. Clean \\T\\ dry. No blood return. Flushes easily. 19:30 Patient has correct armband on for positive identification. Bed in low position. Call [facility] light in reach. Provided Education on: call light, fall precautions. 20:21 US Abdomen Limited In Process Unspecified. EDMS 21:25 Report given to Attila ZAMAN. nj 22:08 No provider procedures requiring assistance completed. IV discontinued, intact, jb4 bleeding controlled, No redness/swelling at site. Pressure dressing applied. Administered Medications: 18:50 Drug: LORazepam PO 1 mg PO once; please give sublingually Route: PO; nj1 19:13 Drug: NS 0.9% IV 1000 ml IV at 1 bolus Per protocol; 1000 mL bolus Route: IV; Rate: 1 [facility] bolus; Site: Port-a-cath; 19:13 Drug: diphenhydrAMINE IVP 12.5 mg IVP once Route: IVP; Site: Port-a-cath; nj 19:14 Drug: Ketorolac IVP 15 mg IVP once Route: IVP; Site: Port-a-cath; nj1 20:36 Drug: fentaNYL (PF) IVP 25 mcg IVP once Route: IVP; Site: Port-a-cath; nj1 22:01 Not Given (Other Intervention Used): heparin [id number] units IVP once jb 22:07 Drug: HEParin Flush IVP 500 units IVP once; for Port-a-cath packing Route: IVP; Site: [facility] Port-a-cath; Outcome: 21:26 Discharge ordered by . rt 22:08 Discharged to home via wheelchair, with family, jb4 22:08 Condition: stable 22:08 Discharge instructions given to patient, Instructed on discharge instructions, follow up and referral plans. Demonstrated understanding of instructions, follow-up care, Prescriptions given X 4, 22:09 Patient left the ED. jb4 Signatures: Dispatcher [employer] EDMS Fadia Goldstein, DOORPERSON-C DOORPERSON-Csnw Julieth Russo, Reg Reg mr Jose Mayer, RN RN jb4 Julieth Germain RN RN mb9 Cosmo Carcamo MD MD rt Raquel Monique RN RN nj1
[2023-01-29] MEDS ORDERED: HEPARIN 500 UNIT/5 ML SYR IV ONE (22:05)
[2023-01-29 22:45] VITALS: TEMP 99.1
[2023-01-29 22:46] VITALS: BP 116/77; O2SAT 98
== END 2023-01-29 22:09 | disposition home or self-care (01) ==
LOC: ER 18:17
DX: R51.9 Headache, unspecified (principal); B97.29 Other coronavirus as the cause of diseases classified elsewhere
CPT/HCPCS: 85025; 36415; 80053; 87804 ×2; 76705; 96375; 96374; 99284; 87811; J1200; J3010; J1642; J7030